=== PATIENT | female | born 1995 | race Caucasian/White ===

== ENCOUNTER 2023-10-04 08:56 | Outpatient (OUT) | payer OTHER, SELFPAY ==
--- NOTE | 2023-10-04 08:58 | US_ITS ---
[address] [address] Patient Name: CAROL FLORES MRN: [id number] date: 1995 Sex: F Assigned Patient Location: US Current Patient Location: Accession/Order Number: [id number] Exam Date: 10/04/2023 09:00 Report Date: 10/04/2023 15:40 At the request of: ADRIANNA MIRANDA Procedure: US OB >= 14 weeks Fetus EXAMINATION: US OB >= 14 weeks Fetus HISTORY: Positive test COMPARISON: No relevant comparison available. FINDINGS: Heart Rate: 148.0 bpm Number: 1.0 Amniotic Fluid Volume: Subjectively normal BIOMETRY: BPD: 2.9 cm cm; 15 weeks 2 days HC: 11.2 cmcm; 15 weeks 3 days AC: 9.4 cm cm; 15 weeks 4 days FL: 1.7 cm cm; 15 weeks 0 days EFW: Not recorded GESTATIONAL AGE: Age by EDC: 14 weeks 3 days JESSICA by EDC: 03/31/2024 Age by US: 15 weeks 2 days JESSICA by US: 03/25/2024 US/US OB >= 14 weeks Fetus IMPRESSION: 1. Single live intrauterine 15 weeks 2 days by today's ultrasound. Electronically authenticated by: AILIN SNELL Date: 10/04/2023 15:40
== END 2023-10-04 08:57 | disposition home or self-care (01) ==
LOC: US 08:57
PROVIDERS: Visit Provider Obstetrics & Gynecology
DX: Z34.92 Encounter for supervision of normal pregnancy, unspecified, second trimester (principal); Z3A.15 15 weeks gestation of pregnancy; N92.6 Irregular menstruation, unspecified
CPT/HCPCS: 76815

== ENCOUNTER 2023-10-23 14:02 | Outpatient (OUT) | payer OTHER, SELFPAY ==
[2023-10-23 14:30] LABS: Basophils Percent Auto 0.4 % (0.2-2.0); Eosinophils Percent Auto 0.4 % (0.9-7.0); Hematocrit 36.2 % (36.0-48.0); Hemoglobin 12.3 g/dL (12.0-16.0); Immature Granulocytes Abs Auto 0.04 10^3/uL (0.00-0.03); Immature Granulocytes Pct Auto 0.4 % (0.0-0.5); Lymphocytes Absolute Auto 1.9 10^3/uL (1.2-3.8); Lymphocytes Percent Auto 19.6 % (20.5-60.0); Mean Corpuscular Volume 94.3 fL (81.0-99.0); Mean Platelet Volume 10.9 fL (9.5-13.5); Monocytes Absolute Auto 0.6 10^3/uL (0.3-0.8); Monocytes Percent Auto 6.4 % (1.7-12.0); Neutrophils Absolute Auto 6.9 10^3/uL (1.4-6.5); Neutrophils Percent Auto 72.8 % (43.0-75.0); Platelet Count 196 10^3/uL (150-450); Red Blood Count 3.84 10^6/uL (4.20-5.40); Red Cell Distribution Width 12.3 % (11.0-15.0); White Blood Count 9.5 10^3/uL (4.0-11.0)
[2023-10-23 14:41] LABS: Estimated Average Glucose 88 mg/dL; Glycohemoglobin A1C 4.7 % (4.5-6.2)
[2023-10-23 15:18] LABS: Thyroid Stimulating Hormone 2.501 uIU/mL (0.358-3.740)
[2023-10-24 06:10] LABS: HBsAg Screen Negative (Negative); HCV Ab Non Reactive (Non Reactive); HIV Ab/p24 Ag Screen Non Reactive (Non Reactive); Rapid Plasma Reagin, Quant Non Reactive titer (NonRea<1:1)
[2023-10-24 08:10] LABS: Rubella Antibodies, IgG 1.12 index (Immune >0.99)
== END 2023-10-23 14:03 | disposition home or self-care (01) ==
LOC: LAB 14:04
PROVIDERS: Visit Provider Obstetrics & Gynecology
DX: N92.6 Irregular menstruation, unspecified (principal)
CPT/HCPCS: 36415; 83036; 84443; 85025; 86592; 86762; 86803; 86850; 86900; 86901; 87086; 87340; 87389

== ENCOUNTER 2023-11-01 19:01 | Outpatient (REF) | payer OTHER, SELFPAY ==
--- OUTSIDE RECORDS SUMMARY | 2023-11-01 19:04 | XMS_ITS | CCD ---
Author Name Unknown Address [address] [place] [address] Organization [facility] Encounters Encounter Date Encounter Type Care Provider Facility Start: 10-04-2023 End: 10-04-2023 ambulatory Not Available Payers Date Payer Category Payer Medicaid [id number] 1995 Unknown [id number] Summary Purpose Family History No Family History Records Found Advance Directives No Advanced Directives Records Found Additional Source Comments INFORMATION SOURCE (unrecogn ized section and content) DATE CREATED AUTHOR 10/06/2023 [facility] Special[facility] EPIC FOR RECORDS PERTAINING TO PATIENTS WHO ARE OR HAVE BEEN ENROLLED IN A CHEMICAL DEPENDENCY/SUBSTANCEABUSE PROGRAM, SOME INFORMATION MAY BE OMITTED. This clinical summary was aggregated from multiple sources. Caution should be exercised in using it in the provision of clinical care. This summary normalizes information from multiple sources, and as a consequence, information in this document may materially change the coding, format and clinical context of patient data. In addition, data may be omitted in some cases. CLINICAL DECISIONS SHOULD BE BASED ON THE PRIMARY CLINICAL RECORDS. [employer]. provides no warranty or guarantee of the accuracy or completeness of information in this document.
[2023-11-07 15:08] LABS: Age Gdln ACOG Testing Note (.); HPV Aptima Negative (Negative); IGP, Aptima HPV, rfx 16/18,45 Note (.)
== END 2023-11-01 19:02 | disposition home or self-care (01) ==
LOC: LAB 19:01
PROVIDERS: Visit Provider Obstetrics & Gynecology
DX: Z01.419 Encounter for gynecological examination (general) (routine) without abnormal findings (principal)
CPT/HCPCS: 87624; G0145

== ENCOUNTER 2023-11-06 19:04 | Outpatient (OUT) | payer OTHER, SELFPAY ==
--- OUTSIDE RECORDS SUMMARY | 2023-11-06 19:06 | XMS_ITS | CCD ---
Author Name Unknown Address [address] [place] [address] Organization [facility] Care Team Providers Care Metal Buffer Name Role Phone ADRIANNA MIRANDA Attending Unavailable Encounters Encounter Date Encounter Type Care Provider Facility Start: 11-01-2023 End: 11-01-2023 ambulatory ADRIANNA MIRANDA Not Available Start: 10-04-2023 End: 10-04-2023 ambulatory ADRIANNA RUBEN Not Available Payers Date Payer Category Payer Medicaid [id number] 1995 Unknown [id number] 2.16.84 [id number] 1995 Unknown [id number] .[id number] Summary Purpose Family History No Family History Records Found Advance Directives No Advanced Directives Records Found Additional Source Comments INFORMATION SOURCE (unrecogn ized section and content) DATE CREATED AUTHOR 11/02/2023 [facility] Specialists EPIC FOR RECORDS PERTAINING [...] BE BASED ON THE PRIMARY CLINICAL RECORDS. [employer] provides no warranty or guarantee of the accuracy or completeness of information in this document.
--- NOTE | 2023-11-06 19:08 | US_ITS ---
[address] [address] Patient Name: CAROL FLORES MRN: [id number] date: 1995 Sex: F Assigned Patient Location: US Current Patient Location: Accession/Order Number: [id number] Exam Date: 11/06/2023 19:20 Report Date: 11/07/2023 06:34 At the request of: ADRIANNA MIRANDA Procedure: US OB anatomy EXAMINATION: US OB anatomy, US OB cervical length HISTORY: SCREENING, ANTENTAL, FOR ANATOMIC SURVEY Z36.89 COMPARISON: Ultrasound OB 10/04/2023 TECHNIQUE: Transabdominal sonographic examination was performed for obstetrical and evaluation. FINDINGS: Number: 1 Heart Rate: 150.0 bpm H.B. /min Amniotic Fluid Volume: Subjectively normal Placental Location: POSTERIOR with lower margin 6.2 cm from os. Cervix Length: 4.3 cm, closed. ANATOMY: Normal Structures -cerebellum, choroid plexus, cisterna magna, lateral cerebral ventricles, orbits, midline falx, hard palate, four-chamber heart, RVOT, LVOT, stomach, kidneys, bladder, umbilical cord insertion into abdomen, three-vessel cord, cervical spine, thoracic spine, lumbar spine, sacral spine, right upper extremity, left upper extremity, right lower extremity, left lower extremity. SUBOPTIMALLY SEEN: None ABNORMALITIES: None BIOMETRY: BPD: 4.4 cm 19 weeks 3 days HC: 17.6 cm 20 weeks 1 days AC: 15.6 cm 20 weeks 5 days FL: 3.2 cm 19 weeks 6 days EFW:343.7 grams; 62% FL/AC: 20.4 FL/BPD: 71.4 HC/AC: 1.1 GESTATIONAL AGE: Age by EDC: 20 weeks 0 days JESSICA by EDC: 03/25/2024 Age by current US: 20 weeks 0 days JESSICA by current US: 03/25/2024 US/US OB anatomy IMPRESSION: 1. Single live intrauterine with growth detailed above. Electronically authenticated by: AILIN SNELL Date: 11/07/2023 06:34
--- NOTE | 2023-11-06 19:08 | US_ITS ---
[address] [address] Patient Name: CAROL FLORES MRN: [id number] date: 1995 Sex: F Assigned Patient Location: US Current Patient Location: Accession/Order Number: [id number] Exam Date: 11/06/2023 19:20 Report Date: 11/07/2023 06:34 At the request of: ADRIANNA MIRANDA Procedure: US OB cervical length EXAMINATION: US OB anatomy, US OB cervical length HISTORY: SCREENING, ANTENTAL, FOR ANATOMIC SURVEY Z36.89 COMPARISON: Ultrasound OB 10/04/2023 TECHNIQUE: Transabdominal sonographic examination was performed for obstetrical and evaluation. FINDINGS: Number: 1 Heart Rate: 150.0 bpm H.B. /min Amniotic Fluid Volume: Subjectively normal Placental Location: POSTERIOR with lower margin 6.2 cm from os. Cervix Length: 4.3 cm, closed. ANATOMY: Normal Structures -cerebellum, choroid plexus, cisterna magna, lateral cerebral ventricles, orbits, midline falx, hard palate, four-chamber heart, RVOT, LVOT, stomach, kidneys, bladder, umbilical cord insertion into abdomen, three-vessel cord, cervical spine, thoracic spine, lumbar spine, sacral spine, right upper extremity, left upper extremity, right lower extremity, left lower extremity. SUBOPTIMALLY SEEN: None ABNORMALITIES: None BIOMETRY: BPD: 4.4 cm 19 weeks 3 days HC: 17.6 cm 20 weeks 1 days AC: 15.6 cm 20 weeks 5 days FL: 3.2 cm 19 weeks 6 days EFW:343.7 grams; 62% FL/AC: 20.4 FL/BPD: 71.4 HC/AC: 1.1 GESTATIONAL AGE: Age by EDC: 20 weeks 0 days JESSICA by EDC: 03/25/2024 Age by current US: 20 weeks 0 days JESSICA by current US: 03/25/2024 US/US OB cervical length IMPRESSION: 1. Single live intrauterine with growth detailed above. Electronically authenticated by: AILIN SNELL Date: 11/07/2023 06:34
== END 2023-11-06 19:05 | disposition home or self-care (01) ==
LOC: US 19:04
PROVIDERS: Visit Provider Obstetrics & Gynecology
DX: Z36.89 Encounter for other specified antenatal screening (principal); Z3A.20 20 weeks gestation of pregnancy
CPT/HCPCS: 76805; 76817

== ENCOUNTER 2023-12-27 10:08 | Outpatient (OUT) | payer OTHER, SELFPAY ==
--- OUTSIDE RECORDS SUMMARY | 2023-12-27 10:28 | XMS_ITS | CCD ---
Author Organization [facility] Care Team Providers Care Pollution Control Chemist Name Role Phone ADRIANNA MIRANDA Attending Unavailable TAYLOR GOMES Attending Unavailable Encounters Encounter Date Encounter Type Care Provider Facility Start: 11-29-2023 End: 11-29-2023 ambulatory TAYLOR GOMES Not Available Start: 11-01-2023 End: 11-01-2023 ambulatory ADRIANNA MIRANDA Not Available Start: 10-04-2023 End: 10-04-2023 ambulatory ADRIANNA MIRANDA Not Available Payers Date Payer Category Payer Medicaid [id number] 1995 Unknown [id number] 2.16.84 [id number] 1995 Unknown [id number] 2.16.84 [id number] 1995 Unknown [id number] 2.16.840 .[id number] Summary Purpose Family History No Family History Records Found Advance Directives No Advanced Directives Records Found Additional Source Comments INFORMATION SOURCE (unrecogn ized section and content) DATE CREATED AUTHOR 12/07/2023 [facility] Specialists EPIC FOR RECORDS PERTAINING TO PATIENTS [...] BE BASED ON THE PRIMARY CLINICAL RECORDS. [facility]. provides no warranty or guarantee of the accuracy or completeness of information in this document.
[2023-12-27 11:36] LABS: Basophils Percent Auto 0.4 % (0.2-2.0); Eosinophils Percent Auto 0.5 % (0.9-7.0); Hematocrit 35.4 % (36.0-48.0); Hemoglobin 11.8 g/dL (12.0-16.0); Immature Granulocytes Abs Auto 0.04 10^3/uL (0.00-0.03); Immature Granulocytes Pct Auto 0.5 % (0.0-0.5); Lymphocytes Absolute Auto 1.4 10^3/uL (1.2-3.8); Lymphocytes Percent Auto 18.5 % (20.5-60.0); Mean Corpuscular HGB Conc 33.3 g/dL (29.9-35.2); Mean Corpuscular Hemoglobin 32.2 pg (26.7-34.0); Mean Corpuscular Volume 96.7 fL (81.0-99.0); Mean Platelet Volume 10.8 fL (9.5-13.5); Monocytes Absolute Auto 0.7 10^3/uL (0.3-0.8); Monocytes Percent Auto 8.9 % (1.7-12.0); Neutrophils Absolute Auto 5.5 10^3/uL (1.4-6.5); Neutrophils Percent Auto 71.2 % (43.0-75.0); Platelet Count 176 10^3/uL (150-450); Red Blood Count 3.66 10^6/uL (4.20-5.40); Red Cell Distribution Width 12.3 % (11.0-15.0); White Blood Count 7.7 10^3/uL (4.0-11.0)
[2023-12-27 14:15] LABS: Glucose 1 Hour 71 mg/dL (<130)
== END 2023-12-27 10:09 | disposition home or self-care (01) ==
LOC: LAB 10:09
PROVIDERS: Visit Provider Obstetrics & Gynecology
DX: Z13.1 Encounter for screening for diabetes mellitus (principal)
CPT/HCPCS: 36415; 82950; 85025

== ENCOUNTER 2024-01-02 07:33 | Outpatient (RCR) | payer OTHER, SELFPAY ==
[2024-01-02 08:56] VITALS: BP 130/80; PULSE 100; RESP 18; TEMP 36.4; O2SAT 97
[2024-01-02] MEDS: RHO(D) IMMUNE GLOBULIN 1,500 UNIT SYRINGE 1500 UNIT IM (08:59)
--- NOTE | 2024-01-02 09:09 | PC.NURSE ---
0850: Pt. to [facility] amb. for ordered Rhogam injection. Seated in recliner. Allergies verified. VSS. Pt. received Rhogam in past pregnancies x's 2 with no adverse reactions. 0859: Pt. medicated with Rhogam 1500 IU IM to right gluteal area. No bleeding to injection site. Pt. tolerated without c/o. 0908: Pt. without c/o. Given Rhogam ID card. D/c'd amb. to home.
== END 2024-01-02 09:31 | disposition home or self-care (01) ==
LOC: INF 07:33
PROVIDERS: Visit Provider Obstetrics & Gynecology
DX: O26.893 Other specified pregnancy related conditions, third trimester (principal); Z67.91 Unspecified blood type, Rh negative; Z3A.00 Weeks of gestation of pregnancy not specified
CPT/HCPCS: 36415; 86850; 86900; 86901; 96372; J2790

== ENCOUNTER 2024-01-10 11:30 | Outpatient (OUT) | payer OTHER, SELFPAY ==
--- NOTE | 2024-01-10 11:34 | US_ITS ---
[address] [address] Patient Name: CAROL FLORES MRN: [id number] date: 1995 Sex: F Assigned Patient Location: US Current Patient Location: US Accession/Order Number: [id number] Exam Date: 01/10/2024 11:35 Report Date: 01/10/2024 12:06 At the request of: ADRIANNA MIRANDA Procedure: US OB growth EXAMINATION: US OB growth HISTORY: 27 weeks gestation of Z3A.27 COMPARISON: Ultrasound OB anatomy 11/06/2023 FINDINGS: Heart Rate: 134.3 bpm Number: 1.0 Position: CEPHALIC Amniotic Fluid Volume: 15.3 cm Maximum Vertical Pocket: 4.6 cm BIOMETRY: BPD: 7.4 cm cm; 29 weeks 4 days; 47% HC: 28.4 cmcm; 31 weeks 1 days ; 73% AC: 25.0 cm cm; 29 weeks 2 days; 43% FL: 5.5 cm cm; 29 weeks 0 days; 29% EFW: 1387.1 grams; 41% FL/AC: 22.0 FL/BPD: 74.7 HC/AC: 1.1 GESTATIONAL AGE: Age by EDC: 29 weeks 2 days JESSICA by EDC: 03/25/2024 Age by US: 29 weeks 5 days JESSICA by US: 03/22/2024 US/US OB growth IMPRESSION: 1. Single live intrauterine with growth detailed above. 2. Small testicular hydrocele noted during examination. Electronically authenticated by: AILIN SNELL Date: 01/10/2024 12:06
--- OUTSIDE RECORDS SUMMARY | 2024-01-10 11:37 | XMS_ITS | CCD ---
Author Organization [facility] Care Team Providers Care Children'[address] Magistrate Name Role Phone ADRIANNA MIRANDA Attending Unavailable TAYLOR GOMES Attending Unavailable RUBEN, ADRIANNA Attending Unavailable Encounters Encounter Date Encounter Type Care Provider Facility Start: 12-27-2023 End: 12-27-2023 ambulatory ADRIANNA MIRANDA Not Available Start: 11-29-2023 End: 11-29-2023 ambulatory TAYLOR GOMES Not Available Start: 11-01-2023 End: 11-01-2023 ambulatory ADRIANNA RUBEN Not Available Start: 10-04-2023 End: 10-04-2023 ambulatory ADRIANNA RUBEN Not Available Payers Date Payer Category Payer Medicaid [id number] 1995 Unknown [id number] 2.16.84 0.1.857531.3.579.2.1259 1995 Unknown [id number] 2.16.84 0.1.723132.3.579.2.1259 1993 Unknown [id number] 2.16.84 0.1.505975.3.579.2.1259 1993 Unknown [id number] 2.16.840 .[id number] Summary Purpose Family History No Family History Records Found Advance Directives No Advanced Directives Records Found Additional Source Comments INFORMATION SOURCE (unrecogn ized section and content) DATE CREATED AUTHOR 12/28/2023 [facility] Specialists EPIC FOR RECORDS PERTAINING TO PATIENTS [...] BE BASED ON THE PRIMARY CLINICAL RECORDS. [facility]. provides no warranty or guarantee of the accuracy or completeness of information in this document.
== END 2024-01-10 11:31 | disposition home or self-care (01) ==
LOC: US 11:30
PROVIDERS: Visit Provider Obstetrics & Gynecology
DX: Z87.59 Personal history of other complications of pregnancy, childbirth and the puerperium (principal); Z3A.27 27 weeks gestation of pregnancy
CPT/HCPCS: 76816

== ENCOUNTER 2024-01-19 11:45 | Observation (INO) | payer OTHER, SELFPAY ==
--- OUTSIDE RECORDS SUMMARY | 2024-01-19 11:49 | XMS_ITS | CCD ---
Author Organization [facility] Care Team Providers Care Food Supervisor Name Role Phone ADRIANNA MIRANDA Attending Unavailable TAYLOR GOMES Attending Unavailable RUBEN, ADRIANNA Attending Unavailable ELISEO, TAYLOR Attending Unavailable Encounters Encounter Date Encounter Type Care Provider Facility Start: 01-10-2024 End: 01-10-2024 ambulatory TAYLOR ELISEO Not Available Start: 12-27-2023 End: 12-27-2023 ambulatory ADRIANNA RUBEN Not Available Start: 11-29-2023 End: 11-29-2023 ambulatory TAYLOR ELISEO Not Available Start: 11-01-2023 End: 11-01-2023 ambulatory ADRIANNA RUBEN Not Available Start: 10-04-2023 End: 10-04-2023 ambulatory ADRIANNA RUBEN Not Available Payers Date Payer Category Payer Medicaid [id number] 1995 Unknown [id number] 2.16.84 0.1.002723.3.579.2.9 1995 Unknown [id number] 2.16.84 0.1.741945.3.579.2.9 1993 Unknown [id number] 2.16.84 0.1.452309.3.579.2.1259 1993 Unknown [id number] 2.16.84 0.1.797295.3.579.2.1259 1993 Unknown [id number] 2.16.840 .[id number] Summary Purpose Family History No Family History Records Found Advance Directives No Advanced Directives Records Found Additional Source Comments INFORMATION SOURCE (unrecogn ized section and content) DATE CREATED AUTHOR 01/11/2024 [facility] dical Specialists EPIC FOR RECORDS PERTAINING TO PATIENTS [...] BE BASED ON THE PRIMARY CLINICAL RECORDS. [facility] [employer] [facility]. provides no warranty or guarantee of the accuracy or completeness of information in this document.
[2024-01-19 12:20] VITALS: BP 121/70; PULSE 97
[2024-01-19 12:56] LABS: Bilirubin Urine NEGATIVE (NEGATIVE); Blood Urine NEGATIVE (NEGATIVE); Clarity Urine CLEAR (CLEAR); Color Urine LT. YELLOW (YELLOW); Glucose Urine UA NEGATIVE (NEGATIVE); Ketones Urine NEGATIVE (NEGATIVE); Leukocyte Esterase Urine SMALL (NEGATIVE); Nitrite Urine NEGATIVE (NEGATIVE); Protein Urine NEGATIVE (NEG/TRACE); Urobilinogen Urine 0.2 EU/dL (0.2-1.0)
[2024-01-19 12:58] LABS: Urine Microscopic Indicated YES
[2024-01-19 13:06] LABS: Bacteria Urine NONE SEEN #/HPF (NONE SEEN); Cast Seen? NONE SEEN #/LPF (NONE SEEN); Crystals Seen? None Seen #/HPF (None Seen); Mucus Urine NONE SEEN (NONE SEEN); RBC Urine NONE SEEN #/HPF (0-2); Squamous Epithelial Cell Urine NONE SEEN #/LPF (NONE/RARE); WBC Urine 0-2 #/HPF (NONE SEEN)
--- OUTSIDE RECORDS SUMMARY | 2024-01-22 07:34 | XMS_ITS | CCD ---
Author Organization [facility] Care Team Providers Care Plaster Foreman Name Role Phone ADRIANNA MIRANDA Attending Unavailable [...] Available Payers Date Payer Category Payer Medicaid [id number] 1995 Unknown [id number] 2.16.84 0.1.362059.3.579.2.9 1993 Unknown [id number] 2.16.84 0.1.380844.3.579.2.9 1993 Unknown [id number] 2.16.84 0.1.954737.3.579.2.1259 1993 Unknown [id number] 2.16.84 0.1.152619.3.579.2.1259 1993 Unknown [id number] 2.16.840 .[id number] Summary Purpose Family History No Family History Records Found Advance Directives No Advanced Directives Records Found Additional Source Comments INFORMATION SOURCE (unrecogn ized section and content) DATE CREATED AUTHOR 01/11/2024 [facility] dical Specialists EPIC FOR RECORDS PERTAINING TO [...] BE BASED ON THE PRIMARY CLINICAL RECORDS. [facility] [employer]. provides no warranty or guarantee of the accuracy or completeness of information in this document.
== END 2024-01-19 13:28 | disposition home or self-care (01) ==
PROVIDERS: Admitting Provider Obstetrics & Gynecology; Visit Provider Obstetrics & Gynecology
DX: O26.893 Other specified pregnancy related conditions, third trimester (principal); M54.50 Low back pain, unspecified; N89.8 Other specified noninflammatory disorders of vagina; O34.219 Maternal care for unspecified type scar from previous cesarean delivery; Z3A.30 30 weeks gestation of pregnancy
CPT/HCPCS: 59025; 81001; G0378; G0379

== ENCOUNTER 2024-02-07 09:51 | Outpatient (OUT) | payer OTHER, SELFPAY ==
--- NOTE | 2024-02-07 09:56 | US_ITS ---
[address] [address] Patient Name: CAROL FLORES MRN: [id number] date: 1995 Sex: F Assigned Patient Location: Current Patient Location: Accession/Order Number: [id number] Exam Date: 02/07/2024 10:00 Report Date: 02/07/2024 10:38 At the request of: ADRIANNA MIRANDA Procedure: US OB growth EXAMINATION: US OB growth HISTORY: 27 weeks gestation of Z3A.27 COMPARISON: 01/10/2024 FINDINGS: Heart Rate: 138.5 bpm Amniotic Fluid Volume: 14.2 cm Number: 1.0 Position: Cephalic presentation, longitudinal lie Maximum Vertical Pocket: 4.6 cm cm 3.7 cm cm 2.5 cm cm 3.3 cm cm BIOMETRY: BPD: 8.1 cm cm; 32 weeks 3 days; 21% HC: 30.6 cmcm; 34 weeks 1 days , 33% AC: 31.2 cm cm; 35 weeks 1 days, 93% FL: 6.2 cm cm; 32 weeks 1 days; 13.3 % % EFW: 2310.6 grams, 5 lbs. 2 oz., 62% FL/AC: 19.9 FL/BPD: 76.8 HC/AC: 1.0 GESTATIONAL AGE: Age by EDC: 33 weeks 2 days JESSICA by EDC: 03/25/2024 Age by US: 33 weeks 3 days JESSICA by US: 03/24/2024 Small bilateral scrotal hydroceles US/US OB growth IMPRESSION: Small stable bilateral scrotal hydroceles, nonspecific Otherwise normal interval growth Electronically authenticated by: DONNA DIAMOND Date: 02/07/2024 10:38
--- OUTSIDE RECORDS SUMMARY | 2024-02-07 10:06 | XMS_ITS | CCD ---
Author Organization [facility] Care Team Providers Care Mold Swabber Name Role Phone RUBEN, ADRIANNA Attending Unavailable ELISEO, TAYLOR Attending Unavailable RUBEN, ADRIANNA Attending Unavailable ELISEO, TAYLOR Attending Unavailable RUBEN, ADRIANNA Attending Unavailable Encounters Encounter Date Encounter Type Care Provider Facility Start: 01-24-2024 End: 01-24-2024 ambulatory ADRIANNA RUBEN Not Available Start: 01-10-2024 End: 01-10-2024 ambulatory TAYLOR ELISEO Not Available Start: 12-27-2023 End: 12-27-2023 ambulatory ADRIANNA RUBEN Not Available Start: 11-29-2023 End: 11-29-2023 ambulatory TAYLOR ELISEO Not Available Start: 11-01-2023 End: 11-01-2023 ambulatory ADRIANNA RUBEN Not Available Start: 10-04-2023 End: 10-04-2023 ambulatory ADRIANNA RUBEN Not Available Payers Date Payer Category Payer Medicaid [id number] 1995 Unknown [id number] 0.1.829405.3.579.2.1258 1993 Unknown [id number] .16.84 0.1.501480.3.579.2.1258 1993 Unknown [id number] .16.84 0.1.155868.3.579.2.1258 1993 Unknown [id number] .16.84 0.1.857041.3.579.2.9 1993 Unknown [id number] .16.84 0.1.963674.3.579.2.9 1993 Unknown [id number] .[id number] Summary Purpose Family History No Family History Records Found Advance Directives No Advanced Directives Records Found Additional Source Comments INFORMATION SOURCE (unrecogn ized section and content) DATE CREATED AUTHOR 01/25/2024 [facility] jessal Specialists [facility] FOR RECORDS PERTAINING TO PATIENTS WHO ARE [...] BE BASED ON THE PRIMARY CLINICAL RECORDS. [facility] [employer] provides no warranty or guarantee of the accuracy or completeness of information in this document.
== END 2024-02-07 09:52 | disposition home or self-care (01) ==
LOC: US 09:51
PROVIDERS: Visit Provider Obstetrics & Gynecology
DX: Z87.59 Personal history of other complications of pregnancy, childbirth and the puerperium (principal); Z3A.33 33 weeks gestation of pregnancy
CPT/HCPCS: 76816

== ENCOUNTER 2024-02-13 07:25 | Outpatient (OUT) | payer OTHER, SELFPAY ==
--- OUTSIDE RECORDS SUMMARY | 2024-02-13 07:29 | XMS_ITS | CCD ---
Author Organization [facility] Care Team Providers Care Air Sealing Technician Name Role Phone RUBEN, ADRIANNA Attending Unavailable ELISEO, TAYLOR Attending Unavailable RUBEN, ADRIANNA Attending Unavailable ELISEO, TAYLOR Attending Unavailable RUBEN, ADRIANNA Attending Unavailable RUBEN, ADRIANNA Attending Unavailable Encounters Encounter Date Encounter Type Care Provider Facility Start: 02-07-2024 End: 02-07-2024 ambulatory ADRIANNA RUBEN Not Available Start: 01-24-2024 End: 01-24-2024 ambulatory ADRIANNA RUBEN Not Available Start: 01-10-2024 End: 01-10-2024 ambulatory TAYLOR ELISEO Not Available Start: 12-27-2023 End: 12-27-2023 ambulatory ADRIANNA RUBEN Not Available Start: 11-29-2023 End: 11-29-2023 ambulatory TAYLOR ELISEO Not Available Start: 11-01-2023 End: 11-01-2023 ambulatory ADRIANNA RUBEN Not Available Start: 10-04-2023 End: 10-04-2023 ambulatory ADRIANNA RUBEN Not Available Payers Date Payer Category Payer Medicaid [id number] 1995 Unknown [id number] 2.16.84 0.1.125078.3.579.2.1258 1995 Unknown [id number] 2.16.84 0.1.689189.3.579.2.1258 1993 Unknown [id number] 2.16.84 0.1.991027.3.579.2.1258 1993 Unknown [id number] 2.16.84 0.1.889459.3.579.2.9 1993 Unknown [id number] 2.16.84 0.1.152312.3.579.2.1258 1993 Unknown [id number] 2.16.84 0.1.358097.3.579.2.1259 1993 Unknown [id number] 2.16.840 .1.691204.3.579.2.1259 Summary Purpose Family History No Family History Records Found Advance Directives No Advanced Directives Records Found Additional Source Comments INFORMATION SOURCE (unrecogn ized section and content) DATE CREATED AUTHOR 02/08/2024 [facility] Specialists [facility] FOR RECORDS PERTAINING TO PATIENTS WHO [...] BE BASED ON THE PRIMARY CLINICAL RECORDS. [employer] provides no warranty or guarantee of the accuracy or completeness of information in this document.
--- NOTE | 2024-02-13 09:54 | US_ITS ---
[address] [address] Patient Name: CAROL FLORES MRN: [id number] date: 1995 Sex: F Assigned Patient Location: Current Patient [facility]: [facility] Accession/Order Number: [id number] Exam Date: 02/13/2024 10:00 Report Date: 02/13/2024 10:45 At the request of: ADRIANNA MIRANDA Procedure: US OB BPP w non-stress EXAMINATION: US OB BPP w non-stress HISTORY: History of placenta abruption Z87.59 COMPARISON: No relevant comparison available. TECHNIQUE: Ultrasound biophysical profile was performed in the radiology department. FINDINGS: BREATHING MOVEMENTS: 2.0 GROSS BODY MOVEMENTS: 2.0 TONE: 2.0 QUALITATIVE AMNIOTIC FLUID VOLUME: 2.0 PRESENTATION: CEPHALIC HEART RATE: 137.1 bpm H.B./min AMNIOTIC FLUID VOLUME: 14.3 cm cm GESTATIONAL AGE: 34 weeks 1 days CONCLUSION: Total biophysical profile score: 8.0 Electronically authenticated by: DONNA DIAMOND Date: 02/13/2024 10:45
[2024-02-13 10:21] VITALS: BP 125/81; PULSE 113
== END 2024-02-13 10:57 | disposition home or self-care (01) ==
LOC: US 07:25 → FBC 09:57
PROVIDERS: Visit Provider Obstetrics & Gynecology
DX: Z34.93 Encounter for supervision of normal pregnancy, unspecified, third trimester (principal); Z87.59 Personal history of other complications of pregnancy, childbirth and the puerperium; Z3A.34 34 weeks gestation of pregnancy
CPT/HCPCS: 76818

== ENCOUNTER 2024-02-16 05:44 | Outpatient (OUT) | payer OTHER, SELFPAY ==
--- OUTSIDE RECORDS SUMMARY | 2024-02-16 05:47 | XMS_ITS ---
Author Name Auto Generated Organization [facility] Care Team Providers Care Stretcher Helper Name Role Phone ADRIANNA MIRANDA Attending Unavailable ELISEO, TAYLOR Attending Unavailable RUBEN, ADRIANNA Attending Unavailable ELISEO, TAYLOR Attending Unavailable RUBEN, ADRIANNA Attending Unavailable RUBEN, ADRIANNA Attending Unavailable PROBLEMS No Problem Records Found PROCEDURES No Procedure Records Found RESULTS No Result Records Found ALLERGIES No Allergies Records Found ENCOUNTERS ADMIT/DISCHARGE ACCOUNT NUMBER ADMITTING ENCOUNTER CLASS LOCATION SOURCE 02/07/2024/ 4 [id number] Ambulatory Building:[facility] 01/24/2024/ 4 [id number] Ambulatory Building:[facility] 01/10/2024/ 4 [id number] Ambulatory Building:[facility] 12/27/2023/ 4 [id number] Ambulatory Building:[facility] 11/29/2023/ 4 [id number] Ambulatory Building:[facility] 11/01/2023/ 4 [id number] Ambulatory Building:[facility] 10/04/2023/ 3 [id number] Ambulatory Building:[facility] EPIC PAYERS ENCOUNTER GUARANTOR PAYER SUBSCRIBER SOURCE 02/07/2024 CAROL FLEMING: [place] [address]Jdf: (HP) (WP) Primary Insurance:[place] MEDICAID[place] Number: [id number] Date:2023-08-08 CAROL FLEMING: [id number] [place] [address] [facility] EPIC 01/24/2024 CAROL FLEMING: [place] [address]Nvz: (HP) (WP) Primary Insurance:[place] MEDICAIDPolicy Number: [id number] Date:2023-08-08 CAROL FLEMING: [id number] [place] [address] [facility] EPIC 01/10/2024 CAROL FLEMING: [place] [address]Ffk: (HP) (WP) Primary Insurance:[place] MEDICAIDPolicy Number: [id number] Date:2023-08-08 CAROL FLEMING: [id number] [place] [address] [facility] EPIC 12/27/2023 CAROL FLEMING: [place] [address]Vjj: (HP) (WP) Primary Insurance:[place] MEDICAIDPolicy Number: [id number] Date:2023-08-08 CAROL FLEMING: [id number] [place] [address] [facility] EPIC 11/29/2023 CAROL FLEMING: [place] [address]Lje: (HP) (WP) Primary Insurance:[place] MEDICAIDPolicy Number: [id number] Date:2023-08-08 CAROL FLEMING: [id number] [place] [address] [facility] 11/01/2023 CAROL FLEMING: [place] [address]Ywg: (HP) (WP) Primary Insurance:[place] MEDICAIDPolicy Number: [id number] Date:2023-08-08 CAROL FLEMING: [id number] [place] [address] [facility] EPIC 10/04/2023 CAROL FLEMING: [place] [address]Gnt: (HP) (WP) Primary Insurance:[place] MEDICAIDPolicy Number: [id number] Date:2023-08-08 CAROL FLEMING: [id number] [place] [address] [facility] EPIC
[2024-02-16 08:15] VITALS: BP 122/68; PULSE 76
== END 2024-02-16 08:32 | disposition home or self-care (01) ==
LOC: FBCO 05:45 → FBC 08:04
PROVIDERS: Visit Provider Obstetrics & Gynecology
DX: O26.893 Other specified pregnancy related conditions, third trimester (principal)
CPT/HCPCS: 59025

== ENCOUNTER 2024-02-20 07:06 | Outpatient (OUT) | payer OTHER, SELFPAY ==
--- OUTSIDE RECORDS SUMMARY | 2024-02-20 07:08 | XMS_ITS | CCD ---
Author Organization [facility] Care Team Providers Care Automobile Radio Repairer Name Role Phone RUBEN, ADRIANNA Attending Unavailable [...] Available Payers Date Payer Category Payer Medicaid [id number] 1995 Unknown [id number] 2.16.84 0.1.914428.3.579.2.1258 1993 Unknown [id number] 2.16.84 0.1.668114.3.579.2.1258 1993 Unknown [id number] 2.16.84 0.1.932846.3.579.2.1258 1993 Unknown [id number] 2.16.84 0.1.893452.3.579.2.9 1993 Unknown [id number] 2.16.84 0.1.332141.3.579.2.1258 1993 Unknown [id number] 2.16.84 0.1.108417.3.579.2.1259 1993 Unknown [id number] 2.16.840 .1.621831.3.579.2.1259 Summary Purpose Family History No Family History Records Found Advance Directives No Advanced Directives Records Found Additional Source Comments INFORMATION SOURCE (unrecogn ized section and content) DATE CREATED AUTHOR 02/08/2024 [facility] FOR RECORDS PERTAINING TO PATIENTS WHO [...] BE BASED ON THE PRIMARY CLINICAL RECORDS. [facility] [employer] provides no warranty or guarantee of the accuracy or completeness of information in this document.
--- NOTE | 2024-02-20 09:36 | US_ITS ---
[address] [address] Patient Name: CAROL FLORES MRN: [id number] date: 1995 Sex: F Assigned Patient Location: US Current Patient Location: [place] Accession/Order Number: [id number] Exam Date: 02/20/2024 10:10 Report Date: 02/20/2024 11:28 At the request of: ADRIANNA MIRANDA Procedure: US OB BPP w non-stress EXAMINATION: US OB BPP w non-stress HISTORY: History of placental abruption Z87.59 COMPARISON: No relevant comparison available. TECHNIQUE: Ultrasound biophysical profile was performed in the radiology department. FINDINGS: BREATHING MOVEMENTS: 2.0 GROSS BODY MOVEMENTS: 2.0 TONE: 2.0 QUALITATIVE AMNIOTIC FLUID VOLUME: 2.0 PRESENTATION: CEPHALIC HEART RATE: 142.1 bpm H.B./min AMNIOTIC FLUID VOLUME: 13.6 cm cm GESTATIONAL AGE: 35 weeks 1 days CONCLUSION: Total biophysical profile score: 8.0 Electronically authenticated by: DONNA DIAMOND Date: 02/20/2024 11:28
[2024-02-20 10:02] VITALS: BP 118/67; PULSE 104
== END 2024-02-20 11:00 | disposition home or self-care (01) ==
LOC: US 07:06 → FBC 09:51
PROVIDERS: Visit Provider Obstetrics & Gynecology
DX: Z34.93 Encounter for supervision of normal pregnancy, unspecified, third trimester (principal); Z87.59 Personal history of other complications of pregnancy, childbirth and the puerperium; Z3A.35 35 weeks gestation of pregnancy
CPT/HCPCS: 76818

== ENCOUNTER 2024-02-23 08:08 | Outpatient (OUT) | payer OTHER, SELFPAY ==
--- OUTSIDE RECORDS SUMMARY | 2024-02-23 08:11 | XMS_ITS | CCD ---
Author Organization [facility] Care Team Providers Care Movie Theater Usher Name Role Phone RUBEN, ADRIANNA Attending Unavailable [...] Available Payers Date Payer Category Payer Medicaid [id number] 1995 Unknown [id number] 2.16.84 0.1.143052.3.579.2.1258 1993 Unknown [id number] 2.16.84 0.1.999790.3.579.2.1258 1993 Unknown [id number] 2.16.84 0.1.972968.3.579.2.1258 1993 Unknown [id number] 2.16.84 0.1.639115.3.579.2.9 1993 Unknown [id number] 2.16.84 0.1.821706.3.579.2.1258 1993 Unknown [id number] 2.16.84 0.1.421094.3.579.2.1259 1993 Unknown [id number] 2.16.840 .1.880258.3.579.2.1259 Summary Purpose Family History No Family History Records Found Advance Directives No Advanced Directives Records Found Additional Source Comments INFORMATION SOURCE (unrecogn ized section and content) DATE CREATED AUTHOR 02/08/2024 [facility] Special[facility] FOR RECORDS PERTAINING [...] BE BASED ON THE PRIMARY CLINICAL RECORDS. [facility] [employer] provides no warranty or guarantee of the accuracy or completeness of information in this document.
[2024-02-23 08:13] VITALS: BP 128/68; PULSE 90
== END 2024-02-23 08:40 | disposition home or self-care (01) ==
LOC: FBCO 08:08 → FBC 08:10
PROVIDERS: Visit Provider Obstetrics & Gynecology
DX: O43.899 Other placental disorders, unspecified trimester (principal)
CPT/HCPCS: 59025

== ENCOUNTER 2024-02-27 07:05 | Outpatient (OUT) | payer OTHER, SELFPAY ==
--- NOTE | 2024-02-27 | US_ITS ---
[address] [address] Patient Name: CAROL FLORES MRN: [id number] date: 1995 Sex: F Assigned Patient Location: [facility] Current Patient Location: [facility] Accession/Order Number: [id number] Exam Date: 02/27/2024 09:42 Report Date: 02/27/2024 10:09 At the request of: ADRIANNA MIRANDA Procedure: US OB BPP w non-stress EXAMINATION: US OB BPP w non-stress HISTORY: HISTORY OF PLACENTA ABRUPTION Z87.59 COMPARISON: TECHNIQUE: Ultrasound biophysical profile was performed in the radiology department. non-reactive stress testing was performed by nursing staff in the birthing center. FINDINGS: BREATHING MOVEMENTS: 2.0 GROSS BODY MOVEMENTS: 2.0 TONE: 2.0 QUALITATIVE AMNIOTIC FLUID VOLUME: 2.0 PRESENTATION: CEPHALIC HEART RATE: 142.9 bpm H.B./min AMNIOTIC FLUID VOLUME: 14.6 cm cm GESTATIONAL AGE: 36 weeks 1 days CONCLUSION: Total biophysical profile score: 8.0 Electronically authenticated by: DONNA DIAMOND Date: 02/27/2024 10:09
--- OUTSIDE RECORDS SUMMARY | 2024-02-27 08:01 | XMS_ITS | CCD ---
Author Organization [facility] Care Team Providers Care Contribution Solicitor Name Role Phone RUBEN, ADRIANNA Attending Unavailable ELISEO, TAYLOR Attending Unavailable RUBEN, ADRIANNA Attending Unavailable ELISEO, TAYLOR Attending Unavailable RUBEN, ADRIANNA Attending Unavailable RUBEN, ADRIANNA Attending Unavailable RUBEN, ADRIANNA Attending Unavailable Encounters Encounter Date Encounter Type Care Provider Facility Start: 02-21-2024 End: 02-21-2024 ambulatory ADRIANNA RUBEN Not Available Start: 02-07-2024 End: 02-07-2024 ambulatory ADRIANNA RUBEN [...] Available Payers Date Payer Category Payer Medicaid [id number] 1995 Unknown [id number] 2.16.84 0.1.092204.3.579.2.1258 1993 Unknown [id number] 2.16.84 0.1.694821.3.579.2.9 1993 Unknown [id number] 2.16.84 0.1.434363.3.579.2.9 1993 Unknown [id number] 2.16.84 0.1.478218.3.579.2.1259 1993 Unknown [id number] 2.16.84 0.1.340743.3.579.2.1259 1993 Unknown [id number] 2.16.84 0.1.722022.3.579.2.1259 1993 Unknown [id number] 2.16.84 0.1.282586.3.579.2.1259 1993 Unknown [id number] 2.16.840 .1.360807.3.579.2.1259 Summary Purpose Family History No Family History Records Found Advance Directives No Advanced Directives Records Found Additional Source Comments INFORMATION SOURCE (unrecogn ized section and content) DATE CREATED AUTHOR 02/23/2024 [facility] FOR RECORDS PERTAINING TO PATIENTS WHO [...] BE BASED ON THE PRIMARY CLINICAL RECORDS. [employer] provides no warranty or guarantee of the accuracy or completeness of information in this document.
[2024-02-27 10:01] VITALS: BP 109/69; PULSE 92
== END 2024-02-27 10:25 | disposition home or self-care (01) ==
LOC: US 07:48 → FBC 09:39
PROVIDERS: Visit Provider Obstetrics & Gynecology
DX: Z87.59 Personal history of other complications of pregnancy, childbirth and the puerperium (principal); Z3A.36 36 weeks gestation of pregnancy
CPT/HCPCS: 76818; 87081

== ENCOUNTER 2024-02-27 21:24 | Outpatient (REF) | payer OTHER, SELFPAY ==
--- OUTSIDE RECORDS SUMMARY | 2024-02-27 21:29 | XMS_ITS | CCD ---
Author Organization [facility] Care Team Providers Care Genetic Counsellor Name Role Phone RUBEN, ADRIANNA Attending Unavailable [...] Available Payers Date Payer Category Payer Medicaid [id number] 1995 Unknown [id number] 2.16.84 0.1.973258.3.579.2.1258 1993 Unknown [id number] 2.16.84 0.1.340676.3.579.2.9 1993 Unknown [id number] 2.16.84 0.1.757679.3.579.2.9 1993 Unknown [id number] 2.16.84 0.1.360062.3.579.2.1259 1993 Unknown [id number] 2.16.84 0.1.996477.3.579.2.1259 1993 Unknown [id number] 2.16.84 0.1.657361.3.579.2.1259 1993 Unknown [id number] 2.16.84 0.1.640436.3.579.2.1259 1993 Unknown [id number] 2.16.840 .1.205494.3.579.2.1259 Summary Purpose Family History No Family History Records Found Advance Directives No Advanced Directives Records Found Additional Source Comments INFORMATION SOURCE (unrecogn ized section and content) DATE CREATED AUTHOR 02/23/2024 [facility] Special[facility] FOR RECORDS PERTAINING TO PATIENTS [...] BE BASED ON THE PRIMARY CLINICAL RECORDS. [employer] provides no warranty or guarantee of the accuracy or completeness of information in this document.
== END 2024-02-27 21:25 | disposition home or self-care (01) ==
LOC: LAB 21:24
PROVIDERS: Visit Provider Physician Assistant
DX: Z34.93 Encounter for supervision of normal pregnancy, unspecified, third trimester (principal)
CPT/HCPCS: 87081

== ENCOUNTER 2024-03-01 08:10 | Outpatient (OUT) | payer OTHER, SELFPAY ==
--- OUTSIDE RECORDS SUMMARY | 2024-03-01 08:12 | XMS_ITS | CCD ---
Author Organization [facility] Team Providers Care Blood Tester Name Role Phone RUBEN, ADRIANNA Attending Unavailable ELISEO, TAYLOR Attending Unavailable RUBEN, ADRIANNA Attending Unavailable ELISEO, TAYLOR Attending Unavailable RUBEN, ADRIANNA Attending Unavailable RUBEN, ADRIANNA Attending Unavailable RUBEN, ADRIANNA Attending Unavailable ELISEO, TAYLOR Attending Unavailable Encounters Encounter Date Encounter Type Care Provider Facility Start: 02-27-2024 End: 02-27-2024 ambulatory TAYLOR ELISEO Not Available Start: 02-21-2024 End: 02-21-2024 ambulatory ADRIANNA RUBEN [...] Available Payers Date Payer Category Payer Medicaid [id number] 1995 Unknown [id number] 2.16.84 0.1.469820.3.579.2.1259 1993 Unknown [id number] 2.16.84 0.1.626399.3.579.2.1259 1993 Unknown [id number] 2.16.84 0.1.419471.3.579.2.1259 1993 Unknown [id number] 2.16.84 0.1.540459.3.579.2.1259 1993 Unknown [id number] 2.16.84 0.1.126031.3.579.2.1258 1993 Unknown [id number] 2.16.84 0.1.503455.3.579.2.1258 1993 Unknown [id number] 2.16.84 0.1.625939.3.579.2.1258 1993 Unknown [id number] 2.16.84 0.1.700686.3.579.2.1258 1993 Unknown [id number] 2.16.840 .1.642473.3.579.2.1259 Summary Purpose Family History No Family History Records Found Advance Directives No Advanced Directives Records Found Additional Source Comments INFORMATION SOURCE (unrecogn ized section and content) DATE CREATED AUTHOR 02/29/2024 [facility] Specialists EPIC FOR RECORDS PERTAINING TO [...] BE BASED ON THE PRIMARY CLINICAL RECORDS. [facility] [employer] provides no warranty or guarantee of the accuracy or completeness of information in this document.
[2024-03-01 08:15] VITALS: BP 121/77; PULSE 121
== END 2024-03-01 09:10 | disposition home or self-care (01) ==
LOC: FBCO 08:10 → FBC 08:11
PROVIDERS: Visit Provider Obstetrics & Gynecology
DX: O43.899 Other placental disorders, unspecified trimester (principal)
CPT/HCPCS: 59025

== ENCOUNTER 2024-03-05 07:15 | Outpatient (OUT) | payer OTHER, SELFPAY ==
--- NOTE | 2024-03-05 | US_ITS ---
[address] [address] Patient Name: CAROL FLORES MRN: [id number] date: 1995 Sex: F Assigned Patient Location: [facility] Current Patient Location: Accession/Order Number: [id number] Exam Date: 03/05/2024 10:00 Report Date: 03/05/2024 11:30 At the request of: ADRIANNA MIRANDA Procedure: US OB BPP w non-stress EXAMINATION: US OB BPP w non-stress HISTORY: HISTORY OF PLACENTA ABRUPTION Z 87.59 COMPARISON: No relevant comparison available. TECHNIQUE: Ultrasound biophysical profile was performed in the radiology department. FINDINGS: BREATHING MOVEMENTS: 2.0 GROSS BODY MOVEMENTS: 2.0 TONE: 2.0 QUALITATIVE AMNIOTIC FLUID VOLUME: 2.0 PRESENTATION: CEPHALLIC HEART RATE: 150.0 bpm H.B./min AMNIOTIC FLUID VOLUME: 13.0 cm cm GESTATIONAL AGE: 37 weeks 1 days CONCLUSION: Total biophysical profile score: 8.0 Electronically authenticated by: DONNA DIAMOND Date: 03/05/2024 11:30
--- NOTE | 2024-03-05 | US_ITS ---
[address] [address] Patient Name: CAROL FLORES MRN: [id number] date: 1995 Sex: F Assigned Patient Location: [facility] Current Patient Location: Accession/Order Number: [id number] Exam Date: 03/05/2024 10:00 Report Date: 03/05/2024 11:31 At the request of: ADRIANNA MIRANDA Procedure: US OB growth EXAMINATION: US OB growth HISTORY: HISTORY OF PLACENTA ABRUPTION Z 87.59 COMPARISON: No relevant comparison available. FINDINGS: Heart Rate: 150.0 bpm Amniotic Fluid Volume: 13.0 cm Number: 1.0 Position: Cephalic presentation, longitudinal lie Maximum Vertical Pocket: 3.7 cm cm 2.4 cm cm 3.5 cm cm 3.4 cm cm BIOMETRY: BPD: 9.0 cm cm; 36 weeks 3 days; 44% HC: 32.7 cmcm; 37 weeks 1 days , 25% AC: 34.7 cm cm; 38 weeks 4 days, 93% FL: 7.2 cm cm; 37 weeks 1 days; 48.3 % % EFW: 3316.1 grams, 7 lbs. 5 oz., 75% FL/AC: 20.9 FL/BPD: 80.7 HC/AC: 0.9 GESTATIONAL AGE: Age by EDC: 37 weeks 1 days JESSICA by EDC: 03/25/2024 Age by US: 37 weeks 2 days JESSICA by US: 03/24/2024 US/US OB growth IMPRESSION: Normal interval growth Electronically authenticated by: DONNA DIAMOND Date: 03/05/2024 11:31
--- OUTSIDE RECORDS SUMMARY | 2024-03-05 07:44 | XMS_ITS | CCD ---
Author Organization [facility] Care Team Providers Care Loss Prevention Analyst Name Role Phone RUBEN, ADRIANNA Attending Unavailable [...] Available Payers Date Payer Category Payer Medicaid [id number] 1995 Unknown [id number] 2.16.84 0.1.038210.3.579.2.1259 1993 Unknown [id number] 2.16.84 0.1.497845.3.579.2.1259 1993 Unknown [id number] 2.16.84 0.1.505165.3.579.2.1259 1993 Unknown [id number] 2.16.84 0.1.988417.3.579.2.1259 1993 Unknown [id number] 2.16.84 0.1.098648.3.579.2.1258 1993 Unknown [id number] 2.16.84 0.1.572796.3.579.2.1258 1993 Unknown [id number] 2.16.84 0.1.822052.3.579.2.1258 1993 Unknown [id number] 2.16.84 0.1.102898.3.579.2.1258 1993 Unknown [id number] 2.16.840 .1.014237.3.579.2.1259 Summary Purpose Family History No Family History Records Found Advance Directives No Advanced Directives Records Found Additional Source Comments INFORMATION SOURCE (unrecogn ized section and content) DATE CREATED AUTHOR 02/29/2024 [facility] Specialists EPIC FOR RECORDS PERTAINING TO PATIENTS [...] BE BASED ON THE PRIMARY CLINICAL RECORDS. [facility] [employer] provides no warranty or guarantee of the accuracy or completeness of information in this document.
[2024-03-05 10:20] VITALS: BP 142/73; PULSE 93
== END 2024-03-05 10:50 | disposition home or self-care (01) ==
LOC: US 07:40 → FBC 09:58
PROVIDERS: Visit Provider Obstetrics & Gynecology
DX: Z34.93 Encounter for supervision of normal pregnancy, unspecified, third trimester (principal); Z3A.37 37 weeks gestation of pregnancy
CPT/HCPCS: 76816; 76818

== ENCOUNTER 2024-03-08 07:00 | Outpatient (OUT) | payer OTHER, SELFPAY ==
--- OUTSIDE RECORDS SUMMARY | 2024-03-08 08:00 | XMS_ITS | CCD ---
Author Organization [facility] Care Team Providers Care Photogrammetric Compilation Specialist Name Role Phone RUBEN, ADRIANNA Attending Unavailable [...] Available Payers Date Payer Category Payer Medicaid [id number] 1995 Unknown [id number] 2.16.84 0.1.528635.3.579.2.1259 1993 Unknown [id number] 2.16.84 0.1.417237.3.579.2.1259 1993 Unknown [id number] 2.16.84 0.1.656874.3.579.2.1259 1993 Unknown [id number] 2.16.84 0.1.470824.3.579.2.1259 1993 Unknown [id number] 2.16.84 0.1.048615.3.579.2.1258 1993 Unknown [id number] 2.16.84 0.1.078991.3.579.2.1258 1993 Unknown [id number] 2.16.84 0.1.669657.3.579.2.1258 1993 Unknown [id number] 2.16.84 0.1.863936.3.579.2.1258 1993 Unknown [id number] 2.16.840 .1.167250.3.579.2.1259 Summary Purpose Family History No Family History Records Found Advance Directives No Advanced Directives Records Found Additional Source Comments INFORMATION SOURCE (unrecogn ized section and content) DATE CREATED AUTHOR 02/29/2024 [facility] Specialists EPIC [...] BE BASED ON THE PRIMARY CLINICAL RECORDS. [facility] [employer] provides no warranty or guarantee of the accuracy or completeness of information in this document.
[2024-03-08 08:11] VITALS: BP 131/70; PULSE 83
== END 2024-03-08 08:31 | disposition home or self-care (01) ==
LOC: FBCO 07:59 → FBC 08:00
PROVIDERS: Visit Provider Obstetrics & Gynecology
DX: O26.893 Other specified pregnancy related conditions, third trimester (principal)
CPT/HCPCS: 59025

== ENCOUNTER 2024-03-11 05:31 | Inpatient (IN) | payer OTHER, SELFPAY ==
[2024-03-11] VITALS (48 sets, daily range): BP systolic 101–135; BP diastolic 37–84; PULSE 76–95; TEMP 36.2–37.2; O2SAT 98–100
--- OUTSIDE RECORDS SUMMARY | 2024-03-11 05:34 | XMS_ITS ---
Patient Summarization (C-CDA 2.1 CCD) Created on: March 11, 2024 CAROL FLORES : 1995 Sex: Female Author Organization Sample organization Care Team Providers Care Grinding Wheel Inspector Name Role Phone RUBEN, ADRIANNA Attending Unavailable [...] Available Payers Date Payer Category Payer Medicaid [id number] 1995 Unknown [id number] .16.84 0.1.389613.3.579.2.9 1993 Unknown [id number] .16.84 0.1.711229.3.579.2.9 1993 Unknown [id number] 2.16.84 0.1.438303.3.579.2.1258 1993 Unknown [id number] 2.16.84 0.1.587244.3.579.2.1258 1993 Unknown [id number] 2.16.84 0.1.065954.3.579.2.1258 1993 Unknown [id number] 2.16.84 0.1.082738.3.579.2.1258 1993 Unknown [id number] 2.16.84 0.1.921683.3.579.2.1258 1993 Unknown [id number] 2.16.84 0.1.453751.3.579.2.1258 1993 Unknown [id number] 2.16.840 .1.738884.3.579.2.1259 Summary Purpose Family History No Family History Records Found Advance Directives No Advanced Directives Records Found Additional Source Comments INFORMATION SOURCE (unrecogn ized section and content) DATE CREATED AUTHOR 02/29/2024 [facility] Specialists EPIC FOR RECORDS PERTAINING TO [...] BE BASED ON THE PRIMARY CLINICAL RECORDS. [facility] [employer] provides no warranty or guarantee of the accuracy or completeness of information in this document.
[2024-03-11] MEDS: 0.9 % SODIUM CHLORIDE 1,000 ML 1000 ML IV ×2 (06:15→06:55)
[2024-03-11 06:41] LABS: Basophils Percent Auto 0.2 % (0.2-2.0); Eosinophils Absolute Auto 0.1 10^3/uL (0.0-0.7); Eosinophils Percent Auto 0.8 % (0.9-7.0); Hematocrit 32.8 % (36.0-48.0); Hemoglobin 10.9 g/dL (12.0-16.0); Immature Granulocytes Abs Auto 0.04 10^3/uL (0.00-0.03); Immature Granulocytes Pct Auto 0.5 % (0.0-0.5); Lymphocytes Absolute Auto 1.8 10^3/uL (1.2-3.8); Lymphocytes Percent Auto 21.6 % (20.5-60.0); Mean Corpuscular HGB Conc 33.2 g/dL (29.9-35.2); Mean Corpuscular Hemoglobin 30.8 pg (26.7-34.0); Mean Corpuscular Volume 92.7 fL (81.0-99.0); Mean Platelet Volume 12.4 fL (9.5-13.5); Monocytes Absolute Auto 0.8 10^3/uL (0.3-0.8); Monocytes Percent Auto 9.2 % (1.7-12.0); Neutrophils Absolute Auto 5.7 10^3/uL (1.4-6.5); Neutrophils Percent Auto 67.7 % (43.0-75.0); Platelet Count 147 10^3/uL (150-450); Red Blood Count 3.54 10^6/uL (4.20-5.40); Red Cell Distribution Width 12.5 % (11.0-15.0); White Blood Count 8.5 10^3/uL (4.0-11.0)
[2024-03-11] MEDS: FAMOTIDINE/PF 20 MG/2 ML VIAL IV (06:44)
[2024-03-11] MEDS: METOCLOPRAMIDE HCL 10 MG/2 ML VIAL IVP (06:45)
[2024-03-11] MEDS: CITRIC ACID/SODIUM CITRATE 30 ML SOLUTION ORACIT SHOHL'S SOLN PO (06:45)
[2024-03-11] MEDS: CEFAZOLIN SODIUM/DEXTROSE,ISO 2 GM/50 ML PIGGYBACK IV ×2 (06:55→13:27)
[2024-03-11 06:57] LABS: Amphetamine Screen Urine NEGATIVE (NEGATIVE); Barbiturates Screen Urine NEGATIVE (NEGATIVE); Benzodiazepines Screen Urine NEGATIVE (NEGATIVE); Buprenorphine Screen Urine NEGATIVE (NEGATIVE); Cannabinoid Screen Urine NEGATIVE (NEGATIVE); Cocaine Screen Urine NEGATIVE (NEGATIVE); Methadone Screen Urine NEGATIVE (NEGATIVE); Methamphetamines Screen Urine NEGATIVE (NEGATIVE); Opiate Screen Urine NEGATIVE (NEGATIVE); Oxycodone Screen Urine NEGATIVE (NEGATIVE); Phencyclidine Screen Urine NEGATIVE (NEGATIVE); Tricyclic Antidepressant Urine NEGATIVE (NEGATIVE)
[2024-03-11] MEDS: LACTATED RINGER'S SOLUTION 1,000 ML 50 ML IV (08:01)
--- NOTE | 2024-03-11 08:56 | PM.ONB ---
Brief Operative Note Date of procedure: 03/11/24 Pre-op diagnosis general: iup at 39wks previous c/s Post-op diagnosis: same as pre-op Procedure: NAME OF PROCEDURE: [ section with bilateral salpingectomy ] uterine incision was T fashion PROCEDURE: Patient was taken back to the Operating Room where she was given a spinal anesthesia with Duramorph without difficulty. She was prepped and draped in the normal sterile fashion. A Pfannenstiel skin incision was then made 2?cm above the symphysis pubis and carried down to underlying rectus fascia using a Bovie. The fascia was incised in the midline and extended laterally using Christensen scissors. Two Enrique clamps were placed on the superior aspect of the fascia and dissected off the underlying rectus muscles. The same was performed on the inferior aspect as well. The muscles were then in the midline. Peritoneum was identified and entered bluntly. The peritoneum was then extended superiorly and inferiorly with good visualization of the bladder. The bladder blade was inserted. Vesicouterine peritoneum was identified, tented up, and entered with Metzenbaum scissors. A bladder flap was then created digitally. The bladder blade was reinserted. A low transverse incision that was T'd on the patient's uterus and extended laterally digitally. The infant was then delivered atraumatically after the bladder blade was removed in the cephalic position. The cord was clamped and cut. Cord blood was obtained. The was handed off to awaiting team. The patient's placenta was spontaneously delivered. The uterus was then exteriorized. The uterus was cleared of all clots and debris. The bladder blade was reinserted. The patient's uterine incision was closed using #0 Vicryl in a running lock fashion. Excellent hemostasis was assured.? The rt tube was identified and grasped with babock, the ligasure was used to transect and ligate the tube in its entirity, this was done on the contralateral side as well. The uterus was then returned to the patient's abdomen. The patient's abdomen was copiously irrigated using warm saline. Peritoneal gutters were cleared of all clots and debris. Again excellent hemostasis was assured. The patient's fascia was closed using #0 Vicryl in a running fashion. The patient's skin was closed using 4-0 Vicryl subcuticularly. The patient tolerated the procedure well. Sponge, lap, and needle counts were correct x2. The patient was taken to the Recovery Room in stable condition. Anesthesia: spinal Surgeon: Anthony Estevez Marketing Production Manager: Liya Shaw Estimated blood loss (mL): 575 Pathology: other (tubes) Condition: stable Disposition: floor Urinary Catheter Management Urinary Catheter Management Urethral: Cath placed during this visit: no
--- NOTE | 2024-03-11 08:58 | PM.OBPRCCS ---
Procedure Pre-op/Post-op diagnoses: Pre-Op/Post-Op Diagnoses Operation Date: 03/11/24 07:30 <No data on this case meets the specified criteria> Procedure: Procedures Operation Date: 03/11/24 07:30 Actual Procedure Side Surgeon p repeat section with bilateral salpingectomy Bilateral Anthony Estevez DO Estimated blood loss (mL): 575 Disposition: floor Anesthesia type: Spinal
[2024-03-11] MEDS: OXYTOCIN/0.9 % SODIUM CHLORIDE 20 UNITS/1,000 ML PLAST..BAG 125 UNIT IV (09:37)
[2024-03-11] MEDS: KETOROLAC TROMETHAMINE 30 MG/ML VIAL IVP ×2 (14:25→21:55)
[2024-03-12 00:17] VITALS: BP 118/71
[2024-03-12 00:20] VITALS: BP 118/71; PULSE 85; TEMP 36.6
[2024-03-12] MEDS: SIMETHICONE 80 MG TAB.CHEW PO ×4 (02:09→19:37)
[2024-03-12 03:42] VITALS: BP 124/69; TEMP 36.7
[2024-03-12] MEDS: KETOROLAC TROMETHAMINE 30 MG/ML VIAL IVP ×3 (04:01→17:26)
[2024-03-12 05:32] LABS: Basophils Percent Auto 0.1 % (0.2-2.0); Eosinophils Percent Auto 0.1 % (0.9-7.0); Hematocrit 25.2 % (36.0-48.0); Hemoglobin 8.4 g/dL (12.0-16.0); Immature Granulocytes Abs Auto 0.08 10^3/uL (0.00-0.03); Immature Granulocytes Pct Auto 0.6 % (0.0-0.5); Lymphocytes Absolute Auto 1.9 10^3/uL (1.2-3.8); Lymphocytes Percent Auto 13.8 % (20.5-60.0); Mean Corpuscular HGB Conc 33.3 g/dL (29.9-35.2); Mean Corpuscular Hemoglobin 31.3 pg (26.7-34.0); Mean Platelet Volume 11.9 fL (9.5-13.5); Monocytes Absolute Auto 1.2 10^3/uL (0.3-0.8); Monocytes Percent Auto 8.5 % (1.7-12.0); Neutrophils Absolute Auto 10.6 10^3/uL (1.4-6.5); Neutrophils Percent Auto 76.9 % (43.0-75.0); Platelet Count 123 10^3/uL (150-450); Red Blood Count 2.68 10^6/uL (4.20-5.40); Red Cell Distribution Width 12.4 % (11.0-15.0); White Blood Count 13.7 10^3/uL (4.0-11.0)
--- NOTE | 2024-03-12 07:31 | PM.OBPN ---
OB - PN: Subj Subjective Patient comments: no complaints, pain well controlled, tolerating diet and flatus present [place] status: doing well Exam Constitutional Vital Signs, click to edit/add: Last Vital Signs Temp 98.0 F 03/12/24 03:42 Pulse 85 03/12/24 00:20 Resp 16 03/11/24 20:00 BP 124/69 03/12/24 03:42 Pulse Ox 98 03/11/24 16:44 O2 Del Method Room Air 03/12/24 03:40 Documenting provider has reviewed patient's vital signs: yes Common normals: no apparent distress Respiratory Common normals: normal respiratory effort and clear to auscultation bilaterally Cardio Common normals: regular rate and regular rhythm GI Common normals: Normal to inspection, nondistended, normoactive bowel sounds present Extremity Common normals: no clubbing, cyanosis or edema and no calf tenderness Results Labs Labs: Short CBC 03/12/24 Range/Units 05:19 WBC 13.7 H (4.0-11.0) 10^3/uL Hgb 8.4 L (12.0-16.0) g/dL Hct 25.2 L (36.0-48.0) % Plt Count 123 L (150-450) 10^3/uL Urinary Catheter Management Urinary Catheter Management Urethral: Cath placed during this visit: yes, but has since been removed by the nurse Removal date: 03/11/24 Removal time: 16:00 OB - PN: A/P Plan - day: 1 Plan: routine postop care Time Spent with Patient Time: Total time spent is greater than 50% in coordination of care (as documented) at patient's floor/unit and/or counseling patient: Total time spent with greater than 50% in coordination of care (as documented) at patient's floor/unit and/or counseling patient: less than 15 minutes
[2024-03-12] MEDS: DOCUSATE SODIUM 100 MG CAPSULE PO ×2 (08:16→21:56)
[2024-03-12 09:01] VITALS: BP 119/71
[2024-03-12 09:23] VITALS: PULSE 102; TEMP 36.6
[2024-03-12] MEDS: RHO(D) IMMUNE GLOBULIN 1,500 UNIT SYRINGE 1500 UNIT IM (16:09)
[2024-03-12] MEDS: OXYCODONE HCL/ACETAMINOPHEN 5MG/325MG 2 TAB PO (19:32)
--- NOTE | 2024-03-12 19:57 | PC.NURSE ---
tearful, c/o increased pain to rt lower abdomen cramping with bloating feeling to area after standing up to use BR when finished nursing
[2024-03-13] VITALS (7 sets, daily range): BP systolic 113–131; BP diastolic 62–74; PULSE 78–107; TEMP 36.6–36.9; O2SAT 98
[2024-03-13] MEDS: KETOROLAC TROMETHAMINE 30 MG/ML VIAL IVP (00:17)
[2024-03-13] MEDS: SIMETHICONE 80 MG TAB.CHEW PO (07:47)
[2024-03-13] MEDS: IBUPROFEN 400 MG TABLET 800 MG PO ×2 (07:47→20:42)
[2024-03-13] MEDS: DOCUSATE SODIUM 100 MG CAPSULE PO ×2 (07:48→20:42)
--- NOTE | 2024-03-13 10:16 | PM.OBPN ---
OB - PN: Subj Subjective Patient comments: no complaints, pain well controlled, tolerating diet and flatus present [place] infant status: doing well [place] feeding status: exclusively Narrative: MOM FEELS GREAT. VOICING NO CONCERNS. Exam Constitutional Vital Signs, click to edit/add: Last Vital Signs Temp 98.1 F 03/13/24 07:45 Pulse 78 03/13/24 07:45 Resp 16 03/13/24 07:45 BP 113/62 03/13/24 07:45 Pulse Ox 98 03/11/24 16:44 O2 Del Method Room Air 03/13/24 07:45 Documenting provider has reviewed patient's vital signs: yes Common normals: no apparent distress, oriented x3, no limitations, healthy appearing, alert and well nourished General appearance: cooperative and comfortable HENMT Common normals: normocephalic and head/scalp atraumatic Eye Common normals: PERRL Pupil: accommodation reflex normal Neck & C-Spine Common normals: full ROM and supple Respiratory Common normals: normal respiratory effort Cardio Common normals: regular rate and regular rhythm GI Common normals: Normal to inspection, nondistended, normoactive bowel sounds present, soft to palpation and non-tender Common normals: no CVA tenderness Back & Pelvis Common normals: no thoracic nor lumbar tenderness Extremity Common normals: normal to inspection, full ROM and no calf tenderness Neuro Common normals: CN's II-XII intact bilaterally, moves all extremities, no focal motor deficits and no sensory deficits noted Psych Common normals: mental status grossly normal, thought process normal, cooperative, affect normal and speech normal Urinary Catheter Management Urinary Catheter Management Urethral: Cath placed during this visit: yes, but has since been removed by the nurse Removal date: 03/11/24 Removal time: 16:00 OB - PN: A/P Assessment and Plan (1) S/P repeat low transverse : Assessment and Plan: REPEAT LTCS WITH TUBAL LIGATION. UTERUS HAS T INCISION. FEELS WELL. AMBULATING, EATING NORMALLY. PASSING FLATUS. BREAST FEEDING. VOICING NO COMPLAINTS. HEMOGLOBIN 8 PLUS BUT ASYMPTOMATIC. IS ON IRON. Plan - day: 2 Plan: routine postop care Time Spent with Patient Time: Total time spent is greater than 50% in coordination of care (as documented) at patient's floor/unit and/or counseling patient: Total time spent with greater than 50% in coordination of care (as documented) at patient's floor/unit and/or counseling patient: less than 15 minutes
[2024-03-13] MEDS: IRON PS COMPLEX/B12/FOLIC ACID CAPSULE 1 CAP PO (11:10)
[2024-03-14] MEDS: IRON PS COMPLEX/B12/FOLIC ACID CAPSULE 1 CAP PO (07:38)
[2024-03-14] MEDS: IBUPROFEN 400 MG TABLET 800 MG PO (07:38)
[2024-03-14] MEDS: DOCUSATE SODIUM 100 MG CAPSULE PO (07:39)
--- NOTE | 2024-03-14 07:55 | P.OBPN_ITS ---
OB - PN: Subj Subjective Patient comments: no complaints and pain well controlled [place] status: doing well Exam Constitutional Vital Signs, click to edit/add: Last Vital Signs Temp 98.2 F 03/13/24 22:29 Pulse 106 H 03/13/24 22:29 Resp 16 03/13/24 22:29 BP 124/74 03/13/24 22:29 Pulse Ox 98 03/13/24 07:37 O2 Del Method Room Air 03/13/24 22:29 Documenting provider has reviewed patient's vital signs: yes Common normals: no apparent distress Respiratory Common normals: normal respiratory effort and clear to auscultation bilaterally Cardio Common normals: regular rate and regular rhythm GI Common normals: Normal to inspection, nondistended, normoactive bowel sounds present Extremity Common normals: no clubbing, cyanosis or edema and no calf tenderness Urinary Catheter Management Urinary Catheter Management Urethral: Cath placed during this visit: yes, but has since been removed by the nurse Removal date: 03/11/24 Removal time: 16:00 OB - PN: A/P Assessment and Plan (1) S/P repeat low transverse : Plan - day: 3 Plan: routine postop care, discharge home and other (fu 1wk, precautions given) Time Spent with Patient Time: Total time spent is greater than 50% in coordination of care (as documented) at patient's floor/unit and/or counseling patient: Total time spent with greater than 50% in coordination of care (as documented) at patient's floor/unit and/or counseling patient: less than 15 minutes
--- NOTE | 2024-03-14 11:20 | DS_ITS ---
DISCHARGE DATE: ??03/14/2024 PRIMARY DIAGNOSES: 1.? History of previous with placental abruption at 36-37 weeks, resulting in emergency . ?Patient having increased pain due to either scar tissue or possible placental abnormality.? Decided to proceed with section at 38 weeks due to prior history of abruption. 2.? Intrauterine at 38 weeks. 3.? Previous . PROCEDURE:? Repeat section with bilateral salpingectomy with uterine incision was a T-fashion.? HOSPITAL COURSE:? As expected.? Please see chart for full details.? LABORATORY DATA:? Please see chart. COMPLICATIONS:? None. DISCHARGE CONDITION:? Stable. CONSULTATION:? Anesthesia. DISCHARGE INSTRUCTIONS: 1.? Diet:? Regular. 2.? Medications: a.? Percocet 5/325 one to two p.o. every 4-6 hours p.r.n. pain. b.? Motrin 800 one p.o. every 8 hours p.r.n. pain. 3.? Followup in one week. Restrictions:? Pelvic rest for 6 weeks.? No heavy lifting.? May drive when pain free and no longer on narcotics. MTDD
== END 2024-03-14 11:20 | disposition home or self-care (01) | DRG 539 ==
PROVIDERS: Admitting Provider Obstetrics & Gynecology; Visit Provider Obstetrics & Gynecology
PROC: 10D00Z1 Extraction of Products of Conception, Low, Open Approach (ICD-10-PCS; CPT 59514; principal; 2024-03-11 07:30)
DX: O34.218 Maternal care for other type scar from previous cesarean delivery (principal); O43.893 Other placental disorders, third trimester; O26.893 Other specified pregnancy related conditions, third trimester; Z3A.38 38 weeks gestation of pregnancy; Z37.0 Single live birth; Z67.41 Type O blood, Rh negative; O99.62 Diseases of the digestive system complicating childbirth; K21.9 Gastro-esophageal reflux disease without esophagitis
CPT/HCPCS: 36415; 51702; 59025; 80307; 85025; 85461; 86850; 86900; 86901; 88302; 94667; 94668; 96372; 96374; 96375; 96376; J0665; J0690; J1100; J1170; J1200; J1885; J2274; J2371; J2405; J2590; J2765; J2790; J3010

== ENCOUNTER 2024-11-13 19:46 | Outpatient (REF) | payer OTHER, SELFPAY ==
--- OUTSIDE RECORDS SUMMARY | 2024-11-13 19:50 | XMS_ITS | CCD ---
Author Organization [facility] ion Partnership [facility] Care Team Providers Care Fleece Tier Name Role Phone MD Tila Bauman Primary Care Provider [phone] Adrianna Estevez Attending Provider Tila Bauman Primary Care Unavailable Herb, Adrianna Attending Unavailable Herb, Adrianna Admitting Unavailable HERB, ADRIANNA Attending Unavailable ELISEO, TAYLOR Attending Unavailable HERB, ADRIANNA Attending Unavailable ELISEO, TAYLOR Attending Unavailable HERB, ADRIANNA Attending Unavailable HERB, ADRIANNA Attending Unavailable HERB, ADRIANNA Attending Unavailable ELISEO, TAYLOR Attending Unavailable HERB, ADRIANNA Attending Unavailable HERB, ADRIANNA Attending Unavailable ELISEO, TAYLOR Attending Unavailable Tila Bauman MD Primary Care Provider Tila Bauman MD Unavailable Allergies Allergy Classification Reported Allergen(s) Allergy Type Date of Onset Reaction(s) Facility (5 sources) Cefixime; Translations: [cefixime] Drug Allergy 1 [facility] (5 sources) Cetirizine; Translations: [cetirizine] Drug Allergy 1 rash anithystamines [facility] (5 sources) diphenhydrAMINE ; Translations: [diphenhydramin e] Drug Allergy 1 Unknown, Rash [facility] (3 sources) Morphine Drug Allergy 3 Rash, Hives [facility] Medications Current Medications Medication Drug Class(es) Dates Sig (Normalized) Sig (Original) acetaminophen 325 mg / oxyCODONE hydrochloride 5 mg oral tablet (3 sources) Opioid Agonist Start: 4 End: 5 take 1 tablet by mouth every six hours as needed for pain and pain oxyCODONE-acetaminophe n (Percocet) 5-325 MG tablet Take 1 tablet by mouth every 6 (six) hours if needed for moderate pain or severe pain 03/14/2024 11/13/2024 Discontinued ibuprofen 800 mg oral tablet (3 sources) Nonsteroidal Anti-inflammator y Drug Start: 4 End: 5 take 1 tablet by mouth in the morning, then take 1 tablet by mouth in the evening, then take 1 tablet by mouth at bedtime ibuprofen 800 MG tablet Take 800 mg by mouth in the morning and 800 mg in the evening and 800 mg before bedtime. 03/14/2024 11/13/2024 Discontinued medroxyPROGESTERone acetate 10 mg oral tablet (2 sources) Progestin Start: End: 5 take 1 tablet by mouth once daily medroxyPROGESTERone (Provera) 10 MG tablet Indications: PCOS (polycystic ovarian syndrome) Take 1 tablet (10 mg) by mouth Daily for 14 days 14 tablet 11/13/2024 11/27/2024 Active MV & Min w/FA-DHA ( ADULT GUMMY/DHA/FA PO) (3 sources) End: MV & Min w/FA-DHA ( ADULT GUMMY/DHA/FA PO) Take by mouth 11/13/2024 Discontinued MV & Mi n w/FA-DHA ( ADULT GUMMY/DHA/FA PO) Take by mouth Active Problems Active Problems Problem Classification Problem Date Documented Date Episodic/Chronic Adjustment disorders (3 sources) Stress; Translations: [Reaction to severe stress, unspecified] Onset: 06-14-2023 06-14-2023 Chronic Esophageal disorders (3 sources) Gastroesophageal reflux disease without esophagitis; Translations: [Gastro-esophageal reflux disease without esophagitis] Onset: 06-14-2023 06-14-2023 Chronic Other endocrine disorders (2 sources) Polycystic ovary syndrome; Translations: [Polycystic ovarian syndrome] 11-13-2024 Chronic Past or Other Problems Problem Classification Problem Date Documented Date Episodic/Chronic Contraceptive and procreative management (3 sources) Sterilization requested; Translations: [Encounter for sterilization] Onset: 02-21-2024 02-21-2024 Episodic Residual codes; unclassified (3 sources) H/O: miscarriage; Translations: [Personal history of other complications of , childbirth and the puerperium] Onset: 12-27-2023 12-27-2023 Episodic Residual codes; unclassified (3 sources) Gestation period, 27 weeks; Translations: [27 weeks gestation of ] Onset: 12-27-2023 Resolved: 03-12-2024 03-13-2024 Episodic Results Test Name Value Interpretation Reference Range Facil ity Roque 03-11-2024 L Specimen: [id number] Received: 03/11/24 Status: CHRISTIANE Lara Num: [id number] Spec Type: Surgical Subm Dr: Adrianna Estevez Tissues: A Fallopian Tube - Sterilization (BILATERAL FT) Procedures: HE/2, Gross/Micro L2 Age/ Patient Sex Location Account Attending Physician Adriana Cameron / LABELL [id number] Adrianna Estevez SPEC NUM: [id number] RECD: 03/11/24 STATUS: CHRISTIANE KHANNADale NUM: [id number] JAM: 03/11/[address]: Adrianna Estevez ENTERED: 03/11/24 [facility] DR: Ela,Lab SPEC TYPE: Surgical DEPT: LESLY [place]ON ORDERED: HE/2, Gross/Micro L2 ORDERED: HE/2, Gross/Micro L2 Pathological Diagnosis Bilateral fallopian tubes, bilateral salpingectomy: -Bilateral intact fimbriated fallopian tubes without significant histopathological findings in both tubes Clinical Information Previous section, desires sterilization. Gross Description Received in formalin labeled with the patient's name, date of and bilateral fallopian tubes are 2 undesignated fimbriated fallopian tubes assigned as #1 and #2. Each tube is covered by mello-purple serosa. Tube #1 measures 11.3 cm in length by 0.6 to 1.0 cm in diameter and tube #2 measures 9.6 cm in length by 0.6 to 0.9 cm in diameter. Cut sections for each tube demonstrate an intact luminal center lined by unremarkable mello mucosa. Cutter Operator Asbestos Shingle sections of each tube are submitted in A1 (tube #1) and A2 (tube #2). CPT Codes 93350 Specimen: [id number] Received: 03/11/24 Status: CHRISTIANE Lara Num: [id number] Spec Type: Surgical Subm Dr: Adrianna Estevez Tissues: A Fallopian Tube - Sterilization (BILATERAL FT) Procedures: Elaine PLASCENCIA/Darline L2 Patient: Adriana Cameron [id number] (Continued) Signed (signature on file) Terry Waller MD 03/13/24 [address] [facility] Vital Signs Date Time Vital Sign Value Performing Clinician Estiven spears 11-13-2024 09:57-0500 Body mass index (BMI) [Ratio] 28.35 kg/m2 Adrianna Herb DO Work Phone: [facility] 11-13-2024 09:57-0500 Body weight 80.29 kg Adrianna Herb DO Work Phone: [facility] 11-13-2024 09:57-0500 Diastolic blood pressure 70 mm[Hg] Adrianna Herb DO Work Phone: [facility] 11-13-2024 09:57-0500 Systolic blood pressure 120 mm[Hg] Adrianna Herb DO Work Phone: [facility] Encounters Encounter Date Encounter Type Care Provider Facility Start: 11-13-2024 End: 11-13-2024 Bamboo flowsheet Adrianna Herb DO Work Phone: [facility] Start: 11-13-2024 End: 11-13-2024 Bamboo flowsheet Adrianna Herb DO Work Phone: [facility] Start: 11-13-2024 End: 11-13-2024 Patient encounter procedure Adrianna Herb DO Work Phone: [facility] Work Phone: Start: 11-13-2024 End: 11-13-2024 Periodic preventive med est patient 18-39 yrs Adrianna Herb DO Work Phone: [facility] Comment on above: PCOS (polycystic ova christofer syndrome) (Primary Dx); Well woman exam with routine gynecological exam Start: 04-22-2024 End: 04-22-2024 ambulatory TAYLOR GOMES Not Available Start: 03-18-2024 End: 03-18-2024 ambulatory ADRIANNA HERB Not Available Start: 03-11-2024 End: 03-11-2024 ambulatory MD Tila Bauman Work Phone: [facility] Work Phone: Start: 03-11-2024 End: 03-11-2024 Departed Referred MD Tila Bauman Work Phone: [facility] Start: 03-06-2024 End: 03-06-2024 ambulatory ADRIANNA HERB Not Available Start: 02-27-2024 End: 02-27-2024 ambulatory TAYLOR GOMES Not Available Start: 02-21-2024 End: 02-21-2024 ambulatory ADRIANNA HERB Not Available Start: 02-07-2024 End: 02-07-2024 ambulatory ADRIANNA HERB Not Available Start: 01-24-2024 End: 01-24-2024 ambulatory ADRIANNA HERB Not Available Start: 01-10-2024 End: 01-10-2024 ambulatory TAYLOR GOMES Not Available Start: 12-27-2023 End: 12-27-2023 ambulatory ADRIANNA HERB Not Available Start: 11-29-2023 End: 11-29-2023 ambulatory TAYLOR GOMES Not Available Start: 11-01-2023 End: 11-01-2023 ambulatory ADRIANNA HERB Not Available Start: 10-04-2023 End: 10-04-2023 ambulatory ADRIANNA HERB Not Available Procedures Date Procedure Procedure Detail Performing Clinician Start: 11-01-2023 Microscopic observat ion [Identifier] in Cervix by Cyto stain Adrianna Herb DO Work Phone: Plan of Treatment Date Care Activity Detail Author Start: 11-01-2028 Screening for malign ant neoplasm of cervix [facility] Start: 11-13-2024 End: 11-13-2025 DHEA DHEA Lab Routine PCOS (polycystic ovarian syndrome) Expected: 11/13/2024 (Approximate), Expires: 11/13/2025 [facility] Comment on above: Expected: 11/13/2024 (Approximate), Expires: 11/13/2025 Start: 11-13-2024 End: 11-13-2025 US Pelvis US Pelvis w/ TV Imaging Routine PCOS (polycystic ovarian syndrome) Expected: 11/13/2024, Expires: 11/13/2025 [facility] Comment on above: Expected: 11/13/2024 , Expires: 11/13/2025 Start: 06-08-2024 Influenza vaccination Influenza Vacc ine (#1) [facility] CBC W Auto Different ial panel - Blood CBC and differential Lab Routine PCOS (polycystic ovarian syndrome) Ordered: 11/13/2024 [facility] Comment on above: Ordered: 11/13/2024 Cytology Cervical or vaginal smear or scraping study Pap Smear Pathology and Cytology Routine Well woman exam with routine gynecological exam Ordered: 11/13/2024 [facility] Work Phone: Comment on above: Ordered: 11/13/2024 DHEA-sulfate DHEA-sulfate Lab Routine PCOS (polycystic ovarian syndrome) Ordered: 11/13/2024 [facility] Comment on above: Ordered: 11/13/2024 Follicle stimulating hormone Follicle stimulating hormone Lab Routine PCOS (polycystic ovarian syndrome) Ordered: 11/13/2024 [facility] Comment on above: Ordered: 11/13/2024 hCG, quantitative, hCG, quantitative, Lab Routine PCOS (polycystic ovarian syndrome) Ordered: 11/13/2024 [facility] Work Phone: Comment on above: Ordered: 11/13/2024 Hemoglobin A1c/Hemoglobin.total in Blood Hemoglobin A1c Lab Routine PCOS (polycystic ovarian syndrome) Ordered: 11/13/2024 [facility] Comment on above: Ordered: 11/13/2024 Human papilloma viru s DNA [Presence] in Unspecified specimen by Probe with amplification HPV DNA probe, amplified Microbiology Routine Well woman exam with routine gynecological exam Ordered: 11/13/2024 [facility] Comment on above: Ordered: 11/13/2024 Luteinizing hormone Luteinizing hormone Lab Routine PCOS (polycystic ovarian syndrome) Ordered: 11/13/2024 [facility] Comment on above: Ordered: 11/13/2024 Thyrotropin [Units/volume] in Serum or Plasma TSH Lab Routine PCOS (polycystic ovarian syndrome) Ordered: 11/13/2024 [facility] Comment on above: Ordered: 11/13/2024 Thyroxine (T4) free [Mass/volume] in Serum or Plasma T4, free Lab Routine PCOS (polycystic ovarian syndrome) Ordered: 11/13/2024 [facility] Comment on above: Ordered: 11/13/2024 Immunizations Immunization Date Immunization Notes Care Provider Betsey macdonald 02-24-2021 Bjorna SARS-CoV-2 Vaccination Adrianna Estevez DO Work Phone: [facility] 05-12-1998 diphtheria, tetanus toxoids and acellular pertussis vaccine, unspecified formulation Adrianna Herb DO Work Phone: [facility] 05-12-1998 measles, mumps and rubella virus vaccine Adrianna Herb DO Work Phone: [facility] 08-21-1994 diphtheria, tetanus toxoids and acellular pertussis vaccine, unspecified formulation Adrianna Herb DO Work Phone: [facility] 08-21-1994 trivalent poliovirus vaccine, live, oral Adrianna Herb DO Work Phone: [facility] 04-24-1994 haemophilus influenz ae type b vaccine, conjugate unspecified formulation Adrianna Herb DO Work Phone: [facility] 04-24-1994 measles, mumps and rubella virus vaccine Adrianna Herb DO Work Phone: [facility] 03-13-1994 hepatitis B vaccine, pediatric or pediatric/adolescent dosage Adrianna Herb DO Work Phone: [facility] 1993 hepatitis B vaccine, pediatric or pediatric/adolescent dosage Adrianna Herb DO Work Phone: [facility] 1993 diphtheria, tetanus toxoids and pertussis vaccine Adrianna Herb DO Work Phone: [facility] 1993 haemophilus influenz ae type b vaccine, conjugate unspecified formulation Adrianna Herb DO Work Phone: [facility] 1993 hepatitis B vaccine, pediatric or pediatric/adolescent dosage Adrianna Herb DO Work Phone: [facility] 1993 diphtheria, tetanus toxoids and pertussis vaccine Adrianna Herb DO Work Phone: [facility] 1993 haemophilus influenz ae type b vaccine, conjugate unspecified formulation Adrianna Herb DO Work Phone: [facility] 1993 trivalent poliovirus vaccine, live, oral Adrianna Herb DO Work Phone: [facility] 1993 diphtheria, tetanus toxoids and pertussis vaccine Adrianna Herb DO Work Phone: [facility] 1993 haemophilus influenz ae type b vaccine, conjugate unspecified formulation [facility] DO Work Phone: [facility] 1993 trivalent poliovirus vaccine, live, oral [facility] DO Work Phone: [facility] Healthcare Payers Date Payer Category Payer Self-pay 2023 Medicaid (Managed Care) MELTON M MISTI [id number] 2023 Medicaid [id number] 1993 Unknown [id number]. 1258 1993 Unknown [id number] [id number]. 1258 1993 Unknown [id number] [id number]. 1258 1993 Unknown [id number]. 1258 1993 Unknown [id number] [id number]. 1258 1993 Unknown [id number] [id number]. 1258 1993 Unknown [id number] [id number]. 1258 1993 Unknown [id number] [id number]. 1259 1993 Unknown [id number] [id number]. 9 1993 Unknown [id number] [id number]. 1259 1993 Unknown [id number] [id number]. 1259 1993 Unknown [id number]. 1259 Social History Date Type Detail Facility Tobacco smoking stat [facility] Unknown if ever smoked [facility] Work Phone: Start: 1995 Sex Assigned At Female F [facility] Start: 06-15-2023 Tobacco smoking stat [facility] Never smoked tobacco [facility] Start: 06-15-2023 Tobacco use and exposure Smoke less tobacco non-user [facility] Start: 04-22-2024 End: 11-13-2024 Alcoholic beverage intake Ex-drinker (finding) [facility] Start: 06-13-2023 End: 04-22-2024 Alcoholic beverage intake [facility] Start: 06-13-2023 End: 11-29-2023 Humiliation, Afraid, Rape, and Kick questionnaire [HARK] [facility] Within the last year , have you been afraid of your partner or ex-partner? No [facility] How often do you att end meetings of the clubs or organizations you belong to? Patient declined [facility] Are you now , , , , never or living with a partner? [facility] How often to you hav e a drink containing alcohol? Monthly or less [facility] How many standard dr inks containing alcohol do you have on a typical day? 1 or 2 [facility] How often do you hav e 6 or more drinks on 1 occasion? Never [facility] How hard is it for y ou to pay for the very basics like food, housing, medical care, and heating Not very hard [facility] Do you feel stress - tense, restless, nervous, or anxious, or unable to sleep at night because your mind is troubled all the time - these days [OSQ] To some extent [facility] (I/We) worried wheth er (my/our) food would run out before (I/we) got money to buy more. Never true [facility] Start: 06-15-2023 Alcohol Comment Once in a while [facility] Start: 1995 Sex assigned at Not on file [facility] NEGATED: Highlighted rowStart: NINF History of tobacco use Passive smoker [facility] History of Present illness Narrative 11-13-2024 KUMAR Romero - 11/13/2024 9:30 AM EST Note Date & Type Note Facility 11-13-2024 History of Presen t illness Narrative Reason for Appointment: Patient ID: Adriana Cameron is a 29 y.o. female who presents for Well Women Visit Patient presents today for Annual Exam. MEDICATIONS No current outpatient medications ALLERGIES Allergies Allergen Reactions Morphine Rash and Hives possible Cetirizine Other Reaction(s): rash anithystamines Cefixime Rash Suprax Diphenhydramine Unknown and Rash PROBLEMS Active Ambulatory Problems Diagnosis Date Noted Gastroesophageal reflux disease without esophagitis 06/14/2023 Stress 06/14/2023 History of miscarriage 12/27/2023 Request for sterilization 02/21/2024 Resolved Ambulatory Problems Diagnosis Date Noted 27 weeks gestation of 12/27/2023 Past Medical History: Diagnosis Date GERD (gastroesophageal reflux disease) HISTORY PAST MEDICAL HISTORY SOCIAL HISTORY Past Medical History: Diagnosis Date GERD (gastroesophageal reflux disease) Stress Social History Tobacco Use Smoking status: Never Passive exposure: Never Smokeless tobacco: Never Vaping Use Vaping status: Never Used Substance Use Topics Alcohol use: Not Currently Alcohol/week: 1.0 standard drink of alcohol Types: 1 Glasses of wine per week Comment: Once in a while Drug use: Never FAMILY HISTORY Family History Problem Relation Name Age of Onset Heart disease Father Hypothyroidism Father Mental illness Brother Diabetes Maternal Grandmother Diabetes Maternal Grandfather Diabetes Paternal Grandmother Diabetes Paternal Grandfather Learning disabilities Son Len SURGICAL HISTORY Past Surgical History: Procedure Laterality Date SECTION, CLASSIC 03/12/2024 SECTION, LOW TRANSVERSE 03/07/2014 SECTION, LOW TRANSVERSE 05/03/2015 CYST REMOVAL Right ear as an REVIEW OF SYSTEMS Review of Systems: Review of Systems Constitutional: Negative. HENT: Negative. Eyes: Negative. Respiratory: Negative. Cardiovascular: Negative. Gastrointestinal: Negative. Genitourinary: Negative. Musculoskeletal: Negative. Skin: Negative. Neurological: Negative. All other systems reviewed and are negative. Hematological: Negative. Endocrine: Negative. Allergic/Immunologic: Negative. OBJECTIVE Objective: Physical Exam Constitutional: Appearance: Normal appearance. Genitourinary: Right Adnexa: not tender and no mass present. Left Adnexa: not tender and no mass present. No cervical discharge. Breasts: Breasts are soft. Right: Normal. Left: Normal. HENT: Head: Normocephalic. Nose: Nose normal. Mouth/Throat: Mouth: Mucous membranes are moist. Cardiovascular: Rate and Rhythm: Normal rate. Pulmonary: Effort: Pulmonary effort is normal. Abdominal: General: Bowel sounds are normal. Palpations: Abdomen is soft. Musculoskeletal: General: Normal range of motion. Cervical back: Normal range of motion. Neurological: General: No focal deficit present. Mental Status: She is alert. Skin: General: Skin is warm and dry. Psychiatric: Mood and Affect: Mood normal. Vitals and nursing note reviewed. Exam conducted with a neurologist present. Vitals: Estimated body mass index is 28.35 kg/m as calculated from the following: Height as of 06/15/23: 5' 6.25 . Weight as of this encounter: 177 lb. BP: 120/70 No LMP recorded (within months). ASSESSMENT & PLAN ICD-10-CM 1. PCOS (polycystic ovarian syndrome) E28.2 hCG, quantitative, TSH T4, free CBC and differential Follicle stimulating hormone Luteinizing hormone Hemoglobin A1c DHEA-sulfate DHEA US Pelvis w/ TV DHEA 2. Well woman exam with routine gynecological exam Z01.419 Pap Smear HPV DNA probe, amplified Annual Exam: Patient presents today for an annual exam. Patient states she is doing well states having irregular periodsPap was obtained without difficulty. Orders Placed This Encounter Procedures HPV DNA probe, amplified US Pelvis w/ TV hCG, quantitative, TSH T4, free CBC and differential Follicle stimulating hormone Luteinizing hormone Hemoglobin A1c DHEA-sulfate DHEA Patient getting labs and ultrasound done, we discussed IUD. Patient will follow up with in 2-3 weeks to get IUD placed. Patient will complete 14 days of provera to help with bleeding Follow Up: Patient is to return in 2-3 weeks for iud placement Documented by KUMAR Romero on behalf of: Adrianna Estevez DO documented in this encounter [facility] Evaluation note Note Date & Type Note Facility Evaluation note No assessment information [facility] Work Phone: Evaluation note Note Date & Type Note Facility Evaluation note Diagnosis PCOS (polycystic ovarian syndrome)- Primary Polycystic ovaries Well woman exam with routine gynecological exam Routine gynecological examination documented in this encounter [facility] Summary Purpose Family History No Family History Records FoundNo Family History Records Found Advance Directives No Advanced Directives Records FoundNo Advanced Directives Records Found Additional Source Comments Care Teams (unrecognized sec tion and content) Team Status: Active Member Role Status Dates Tila Bauman MD Primary Care Provider Active Team Status: Inactive Member Role Status Dates Tila Bauman MD Primary Care Provider Active Start: March 11, 2024 End: March 11, 2024 Adrianna Estevez Attending Provider Active Start: Kenzie dewitt 2023 End: March 11, 2024 Fleece Tier Relationship Specialty Start Date End Date Tila Bauman MD [address] [facility] [place] [address] PCP - General Family Medicine 02/13/23 Tila Bauman MD [address] [place] [address] PCP - [facility] 01/07/24 Fleece Tier Relationship Specialty Start Date End Date Tila Bauman MD [address] [facility] [place] [address] PCP - General Family Medicine 02/13/23 Tila Bauman MD [address] [place] [address] [facility] 01/07/24 Goals (unrecognized section and content) Goals may be documented in a n alternate section INFORMATION SOURCE (unrecogn ized section and content) DATE CREATED AUTHOR 03/15/2024 [facility] DATE CREATED AUTHOR ALANIS DACOSTA 04/26/2024 [facility] EPIC Reason for Visit (unrecogniz ed section and content) Reason Comments Well Women Visit FOR RECORDS PERTAINING TO PATIENTS WHO ARE [...] BE BASED ON THE PRIMARY CLINICAL RECORDS. [facility] [employer] provides no warranty or guarantee of the accuracy or completeness of information in this document.
[2024-11-19 15:07] LABS: Age Gdln ACOG Testing Note (.); HPV Aptima Negative (Negative); IGP, Aptima HPV, rfx 16/18,45 Note (.)
== END 2024-11-13 19:47 | disposition home or self-care (01) ==
LOC: LAB 19:46
PROVIDERS: Visit Provider Obstetrics & Gynecology
DX: Z01.419 Encounter for gynecological examination (general) (routine) without abnormal findings (principal)
CPT/HCPCS: 87624; 88175

== ENCOUNTER 2024-12-06 09:19 | Outpatient (OUT) | payer OTHER, SELFPAY ==
--- OUTSIDE RECORDS SUMMARY | 2024-12-05 10:26 | XMS_ITS | CCD ---
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 Role Phone MD Tila Bauman Primary Care Provider Adrianna Estevez Attending Provider Tila Bauman Primary Care Unavailable HerbAdrianna alarcon Attending Unavailable Adrianna Estevez Admitting Unavailable Tila Bauman MD Primary Care Provider Tila Bauman MD Unavailable ADRIANNA ESTEVEZ Attending Unavailable ELISEOTAYLOR GARCIA Attending Unavailable HERB, ADRIANNA Attending Unavailable ELISEO TAYLOR Attending Unavailable HERB, ADRIANNA Attending Unavailable HERB, ADRIANNA Attending Unavailable HERB, ADRIANNA Attending Unavailable ELISEO, TAYLOR Attending Unavailable HERB, ADRIANNA Attending Unavailable HERB, ADRIANNA Attending Unavailable ELISEO, TAYLOR Attending Unavailable Allergies Allergy Classification Reported Allergen(s) Allergy Type Date of Onset Reaction(s) Facility (6 sources) Cefixime; Translations: [cefixime] Drug Allergy 1 [facility] (6 sources) Cetirizine; Translations: [cetirizine] Drug Allergy 1 rash anithystamines [facility] (6 sources) diphenhydrAMINE ; Translations: [diphenhydramin e] Drug Allergy 1 Unknown, Rash [facility] (4 sources) Morphine Drug Allergy 3 Rash, Hives [...] Discontinued medroxyPROGESTERone acetate 10 mg oral tablet (3 sources) Progestin Start: End: 5 take 1 [...] Problem Date Documented Date Episodic/Chronic Adjustment disorders (4 sources) Stress; Translations: [Reaction to severe stress, unspecified] Onset: 06-14-2023 06-14-2023 Chronic Esophageal disorders (4 sources) Gastroesophageal reflux disease without esophagitis; Translations: [Gastro-esophageal reflux disease without esophagitis] Onset: 06-14-2023 06-14-2023 Chronic Other endocrine disorders (2 sources) Polycystic ovary syndrome; Translations: [Polycystic ovarian syndrome] 11-13-2024 Chronic Past or Other Problems Problem Classification Problem Date Documented Date Episodic/Chronic Contraceptive and procreative management (4 sources) Sterilization requested; Translations: [Encounter for sterilization] Onset: 02-21-2024 02-21-2024 Episodic Residual codes; unclassified (4 sources) H/O: miscarriage; Translations: [Personal history of other complications of , childbirth and the puerperium] Onset: 12-27-2023 12-27-2023 Episodic Residual codes; unclassified (4 sources) Gestation period, 27 weeks; Translations: [27 weeks gestation of ] Onset: 12-27-2023 Resolved: 03-12-2024 03-13-2024 Episodic Results Test Name Value Interpretation Reference Range Facil ity IGP,APTIMA HPV,AGE GDLNon AGE GDLN ACOG TESTING Note . [facility] Comment on above: TESTS RESULT FLAG UNITS REF RANGE LAB Clinician Provided Cytology Information Source.............Cervix;Endocervix No. of containers..01 ThinPrep Vial Age Algo ACOG Ida... 3065 01 FLAG LEGEND: L-Low Normal,H-High Normal,LL-Alert Low,HH-Alert High <-Panic Low,>-Panic High,A-Abnormal,AA-Critical Abnormal Performed at: 01 =G [address] [address] Taisha Montes De Oca MD, HPV APTIMA Negative Negative [facility] Comment on above: This nucleic acid amplification test det ects fourteen high- risk HPV types (16,18,31,33,35,39,45,51,52,56,58,59,66,68) without differentiation. Performed at: =G - [facility], [place] [id number] Gate Agent: Taisha Montes De Oca MD, Phone: [phone] Performed at: WB - [facility], [place] [id number] Gate Agent: Taisha Montes De Oca MD, Phone: [phone] IGP, APTIMA HPV, RFX 16/18,45 Note . [facility] Comment on above: TESTS RESULT FLAG UNITS REF RANGE LAB DIAGNOSIS: 02 NEGATIVE FOR INTRAEPITHELIAL LESION OR MALIGNANCY. Specimen adequacy: 02 Satisfactory for evaluation. Endocervical and/or squamous metaplastic cells (endocervical component) are present. Performed by: Cash Teixeira, Brim Presser (ASC) . 02 Note: Note 02 The Pap smear is a screening test designed to aid in the detection of premalignant and malignant conditions of the uterine cervix. It is not a diagnostic procedure and should not be used as the sole means of detecting cervical cancer. Both false-positive and false-negative reports do occur. Test Methodology: Note 02 This liquid based ThinPrep(R) pap test was screened with the use of an image guided system. HPV Genotype Reflex Note 02 Criteria not met, HPV Genotype not performed. FLAG LEGEND: L-Low Normal,H-High Normal,LL-Alert Low,HH-Alert High <-Panic Low,>-Panic High,A-Abnormal,AA-Critical Abnormal Performed at: [address] [facility] [address] [place] [address] Taisha Montes De Oca MD, BRUSH-SPATULA CERVIX ENDOCERVIX [facility] Nevarez 03-11-2024 L Specimen: [id number] Received: 03/11/24 Status: CHRISTIANE Req Num: [id number] Spec Type: Surgical Subm Dr: Adrianna Estevez Tissues: A Fallopian Tube - Sterilization (BILATERAL FT) Procedures: HE/2, Gross/Micro L2 Age/ Patient Sex Location Account Attending Physician RakeshAdriana M / LABELL [id number] Adrianna Estevez SPEC NUM: [id number] RECD: 03/11/24 STATUS: CHRISTIANE KHANNADeonte NUM: [id number] JAM: 03/11/[address]: Adrianna Estevez ENTERED: 03/11/24 [facility] DR: Ela,Lab SPEC TYPE: Surgical DEPT: [...] luminal center lined by unremarkable mello mucosa. Gifted Teacher sections of each tube are submitted in A1 (tube #1) and A2 (tube #2). CPT Codes 48201 Specimen: [id number] Received: 03/11/24 Status: CHRISTIANE Khannadeonte Num: [id number] Spec Type: Surgical Subm Dr: Adrianna Estevez Tissues: A Fallopian Tube - Sterilization (BILATERAL FT) Procedures: HE/2, Gross/Micro L2 Patient: Ardiana Cameron [id number] (Continued) Signed (signature on file) Terry Waller MD 03/13/24 1733 Normal [facility] Vital Signs Date Time Vital Sign Value Performing Clinician Estiven spears 11-13-2024 09:57-0500 Body mass index (BMI) [Ratio] 28.35 kg/m2 Adrianna Estevez DO Work Phone: [facility] 11-13-2024 09:57-0500 Body weight 80.29 kg Adrianna Herb DO Work Phone: [facility] 11-13-2024 09:57-0500 Diastolic blood pressure 70 mm[Hg] Adrianna Herb DO Work Phone: [facility] 11-13-2024 09:57-0500 Systolic blood pressure 120 mm[Hg] Adrianna Herb DO Work Phone: [facility] Encounters Encounter Date Encounter Type Care Provider Facility Start: 11-13-2024 End: 11-13-2024 Bamboo flowsheet Adrianna Herb DO Work Phone: [facility] Start: 11-13-2024 End: 11-19-2024 Bamboo flowsheet Adrianna Herb DO Work Phone: [facility] Start: 11-13-2024 End: 11-19-2024 [facility] Result Encounter Adrianna Herb DO Work Phone: [facility] External Department Unsolicited Start: 11-13-2024 End: 11-13-2024 ambulatory ADRIANNA HERB Not Available Start: 11-13-2024 End: 11-13-2024 Patient encounter procedure Adrianna Herb DO Work Phone: [facility] Healthcare Work Phone: Start: 11-13-2024 End: 11-13-2024 Periodic preventive med est patient 18-39 yrs Adrianna Herb DO Work Phone: [facility] Comment on above: PCOS (polycystic ova christofer syndrome) (Primary Dx); Well woman exam with routine gynecological exam Start: 04-22-2024 End: 04-22-2024 ambulatory TAYLOR GOMES Not Available Start: 03-18-2024 End: 03-18-2024 ambulatory ADRIANNA HERB Not Available Start: 03-11-2024 End: 03-11-2024 ambulatory MD Tila Bauman Work Phone: [facility] Work Phone: Start: 03-11-2024 End: 03-11-2024 Departed Referred MD Tila Bauman Work Phone: [facility] Start: 03-06-2024 End: 03-06-2024 ambulatory ADRIANNA HERB Not Available Start: 02-27-2024 End: 02-27-2024 ambulatory TAYLOR ELISEO Not Available Start: 02-21-2024 End: 02-21-2024 ambulatory ADRIANNA HERB Not Available Start: 02-07-2024 End: 02-07-2024 ambulatory ADRIANNA HERB Not Available Start: 01-24-2024 End: 01-24-2024 ambulatory ADRIANNA HERB Not Available Start: 01-10-2024 End: 01-10-2024 ambulatory TAYLOR GOMES Not Available Start: 12-27-2023 End: 12-27-2023 ambulatory ADRIANNA HERB Not Available Start: 11-29-2023 End: 11-29-2023 ambulatory TAYLOR GOMES Not Available Procedures Date Procedure Procedure Detail Performing Clinician Start: 11-13-2024 IGP,APTIMA HPV,AGE GDLN Adrianna Herb DO Work Phone: Start: 11-01-2023 Microscopic observat ion [Identifier] in Cervix by Cyto stain Adrianna Herb DO Work Phone: Plan of Treatment Date Care Activity Detail Author Start: 11-01-2028 Screening for malign ant neoplasm of cervix [facility] Start: 12-29-2024 End: 12-29-2024 Patient encounter procedure 12/29/2024 9:30 AM EDT Procedure Visit [facility] [address] [place] [id number] Adrianna Estevez, DO [address] [place] [address] [facility] Start: 12-09-2024 End: 12-09-2024 Professional / ancillary services management 12/09/2024 9:00 AM EST Ancillary Procedure [facility] [address] [place] [address] [facility] Start: 11-13-2024 End: 11-13-2025 DHEA DHEA Lab Routine PCOS (polycystic ovarian syndrome) Expected: 11/13/2024 (Approximate), Expires: 11/13/2025 [facility] Comment on above: Expected: 11/13/2024 (Approximate), Expires: 11/13/2025 Start: 11-13-2024 End: 11-13-2025 US Pelvis US Pelvis w/ TV Imaging Routine PCOS (polycystic ovarian syndrome) Expected: 11/13/2024, Expires: 11/13/2025 [facility] Comment on above: Expected: 11/13/2024 , Expires: 11/13/2025 Start: 06-08-2024 Influenza vaccination Influenza Vacc ine (#1) [facility] CBC W Auto Different ial panel - Blood CBC and differential Lab Routine PCOS (polycystic ovarian syndrome) Ordered: 11/13/2024 [facility] Comment on above: Ordered: 11/13/2024 Cytology Cervical or vaginal smear or scraping study Pap Smear Pathology and Cytology Routine Well woman exam with routine gynecological exam Ordered: 11/13/2024 [facility] Work Phone: Comment on above: Ordered: 11/13/2024 DHEA-sulfate DHEA-sulfate Lab Routine PCOS (polycystic ovarian syndrome) Ordered: 11/13/2024 [facility] Comment on above: Ordered: 11/13/2024 Follicle stimulating hormone Follicle stimulating hormone Lab Routine PCOS (polycystic ovarian syndrome) Ordered: 11/13/2024 [facility] Comment on above: Ordered: 11/13/2024 hCG, quantitative, hCG, quantitative, Lab Routine PCOS (polycystic ovarian syndrome) Ordered: 11/13/2024 [facility] Work Phone: Comment on above: Ordered: 11/13/2024 Hemoglobin A1c/Hemoglobin.total in Blood Hemoglobin A1c Lab Routine PCOS (polycystic ovarian syndrome) Ordered: 11/13/2024 [facility] Comment on above: Ordered: 11/13/2024 Human papilloma viru s DNA [Presence] in Unspecified specimen by Probe with amplification HPV DNA probe, amplified Microbiology Routine Well woman exam with routine gynecological exam Ordered: 11/13/2024 [facility] Comment on above: Ordered: 11/13/2024 Luteinizing hormone Luteinizing hormone Lab Routine PCOS (polycystic ovarian syndrome) Ordered: 11/13/2024 [facility] Comment on above: Ordered: 11/13/2024 Thyrotropin [Units/volume] in Serum or Plasma TSH Lab Routine PCOS (polycystic ovarian syndrome) Ordered: 11/13/2024 [facility] Comment on above: Ordered: 11/13/2024 Thyroxine (T4) free [Mass/volume] in Serum or Plasma T4, free Lab Routine PCOS (polycystic ovarian syndrome) Ordered: 11/13/2024 [facility] Comment on above: Ordered: 11/13/2024 Immunizations Immunization Date Immunization Notes Care Provider [facility] 02-24-2021 Moderna SARS-CoV-2 Vaccination Adrianna Herb DO Work Phone: [facility] 05-12-1998 diphtheria, tetanus toxoids and acellular pertussis vaccine, unspecified formulation Adrianna Herb DO Work Phone: [facility] 05-12-1998 measles, mumps and rubella virus vaccine Adrianna Herb DO Work Phone: [facility] 08-21-1994 diphtheria, tetanus toxoids and acellular pertussis vaccine, unspecified formulation Adrianna Herb DO Work Phone: [facility] 08-21-1994 trivalent poliovirus vaccine, live, oral Adrianna Herb DO Work Phone: [facility] 04-24-1994 haemophilus influenz ae type b vaccine, conjugate unspecified formulation Adrianna Herb DO Work Phone: [facility] 04-24-1994 measles, mumps and rubella virus vaccine Adrianna Herb DO Work Phone: [facility] 03-13-1994 hepatitis B vaccine, pediatric or pediatric/adolescent dosage Adrianna Herb DO Work Phone: [facility] 1993 hepatitis B vaccine, pediatric or pediatric/adolescent dosage Adrianna Herb DO Work Phone: [facility] 1993 diphtheria, tetanus toxoids and pertussis vaccine Adrianna Herb DO Work Phone: [facility] 1993 haemophilus influenz ae type b vaccine, conjugate unspecified formulation Adrianna Herb DO Work Phone: [facility] 1993 hepatitis B vaccine, pediatric or pediatric/adolescent dosage Adrianna Herb DO Work Phone: [facility] 1993 diphtheria, tetanus toxoids and pertussis vaccine Adrianna Herb DO Work Phone: [facility] 1993 haemophilus influenz ae type b vaccine, conjugate unspecified formulation Adrianna Herb DO Work Phone: [facility] 1993 trivalent poliovirus vaccine, live, oral Adrianna Herb DO Work Phone: [facility] 1993 diphtheria, tetanus toxoids and pertussis vaccine Adrianna Herb DO Work Phone: [facility] 1993 haemophilus influenz ae type b vaccine, conjugate unspecified formulation Adrianna Herb DO Work Phone: [facility] 1993 trivalent poliovirus vaccine, live, oral Adrianna Herb DO Work Phone: [facility] Payers Date Payer Category Payer Self-pay 2023 Medicaid (Managed Care) LINH CHAPPELL [id number] 2023 Medicaid [id number] 1995 Unknown [id number]. 1259 1993 Unknown [id number] [id number]. 9 1993 Unknown [id number] [id number]. 1258 1993 Unknown [id number] [id number]. 1258 1993 Unknown [id number] [id number]. 1258 1993 Unknown [id number] [id number]. 1258 1993 Unknown [id number] 2.16.840.1.512360.3.579.2. 1258 1993 Unknown [id number] [id number]. 1258 1993 Unknown [id number] 2.16.840.1.066264.3.579.2. 1258 1993 Unknown [id number] [id number]. 1258 1993 Unknown [id number]. 9 Social History Date Type Detail Facility Tobacco smoking stat [facility] Unknown if ever smoked [facility] Work Phone: Start: 1995 Sex Assigned At Female F [facility] Start: 06-15-2023 [facility] Start: 06-15-2023 Tobacco use and exposure [...] - these days [OSQ] To some extent [facility] (I/We) worried wheth er (my/our) food would run out before (I/we) got money to buy more. Never true [facility] Start: 06-15-2023 Alcohol Comment Once in a while [facility] Start: 1995 Sex assigned at Not on file [facility] NEGATED: Highlighted rowStart: NINF History of tobacco use Passive smoker [facility] History of Present illness Narrative 11-13-2024 [...] 05/03/2015 CYST REMOVAL Right ear as an infant REVIEW OF SYSTEMS Review of Systems: Review [...] nursing note reviewed. Exam conducted with a spinneret person present. 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 Relationship Specialty Start Date End Date Tila Bauman MD [address] [facility] [place] [address] PCP - [facility] 02/13/23 Tila Bauman MD [address] [facility] [place] [address] PCP - [facility] 01/07/24 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 Relationship Specialty Start Date End Date Tila Bauman MD [address] [facility] [place] [address] PCP - [facility] 02/13/23 Tila Bauman MD [address] [facility] [place] [address] PCP - [facility] 01/07/24 Goals (unrecognized section and content) Goals may be documented in a n alternate section INFORMATION SOURCE (unrecogn ized section and content) DATE CREATED AUTHOR 03/15/2024 [facility] DATE CREATED AUTHOR AUTHOR'S ORGANIZ ATION 11/15/2024 [facility] EPIC Reason for Visit (unrecogniz [...] BE BASED ON THE PRIMARY CLINICAL RECORDS. [facility]. provides no warranty or guarantee of the accuracy or completeness of information in this document.
--- OUTSIDE RECORDS SUMMARY | 2024-12-06 09:22 | XMS_ITS | CCD ---
Author Organization [facility] ion Partnership [facility] Care Team Providers Care Block Inspector Name Role Phone MD Tila Bauman Primary Care Provider [phone] Adrianna Estevez Attending Provider Tila Bauman Primary [...] sources) Cefixime; Translations: [cefixime] Drug Allergy 1 [facility] (6 sources) Cetirizine; Translations: [cetirizine] Drug Allergy 1 rash anithystamines [facility] (6 sources) diphenhydrAMINE ; Translations: [diphenhydramin e] Drug Allergy 1 Unknown, Rash [facility] (4 sources) Morphine Drug Allergy 3 Rash, [...] GDLNon AGE GDLN ACOG TESTING Note . [facility] Comment on above: TESTS RESULT FLAG UNITS REF RANGE LAB Clinician Provided Cytology Information Source.............Cervix;Endocervix No. of containers..01 ThinPrep Vial Age Algo ACOG Ida... 3065 01 FLAG LEGEND: L-Low Normal,H-High Normal,LL-Alert Low,HH-Alert High <-Panic Low,>-Panic High,A-Abnormal,AA-Critical Abnormal Performed at: 01 =G [address] [address] Taisha Montes De Oca MD, HPV APTIMA Negative Negative [facility] Comment on above: This nucleic acid amplification test det ects fourteen high- risk HPV types (16,18,31,33,35,39,45,51,52,56,58,59,66,68) without differentiation. Performed at: =G - [facility], [place] [id number] Specialty Department Supervisor: Taisha Montes De Oca MD, Phone: [phone] Performed at: WB - [facility], [place] [id number] Specialty Department Supervisor: Taisha Montes De Oca MD, Phone: [phone] IGP, APTIMA HPV, RFX 16[birth year]18,45 Note . [facility] Comment on above: TESTS RESULT FLAG UNITS REF RANGE LAB DIAGNOSIS: 02 NEGATIVE FOR INTRAEPITHELIAL LESION OR MALIGNANCY. Specimen adequacy: 02 Satisfactory for evaluation. Endocervical and/or squamous metaplastic cells (endocervical component) are present. Performed by: Cash Teixeira, Coatings Inspector (ASC) . 02 Note: Note 02 The [...] Low,>-Panic High,A-Abnormal,AA-Critical Abnormal Performed at: [address] [facility] [address] [place] [address] Taisha Montes De Oca MD, BRUSH-SPATULA CERVIX ENDOCERVIX [facility] NOMLatricia Nvearez 03-11-2024 L Specimen: [id number] Received: 03/11/24 Status: CHRISTIANE Req Num: [id number] Spec Type: Surgical Subm Dr: Adrianna Estevez Tissues: A Fallopian Tube - Sterilization (BILATERAL FT) Procedures: HE/2, Gross/Micro L2 Age/ Patient Sex Location Account Attending Physician RakeshAdriana M / LABELL [id number] Adrianna Estevez SPEC NUM: [id number] RECD: 03/11/24 STATUS: CHRISTIANE KHANNADeonte NUM: [id number] JAM: 03/11/[address]: Adrianna Estevez ENTERED: 03/11/24 [facility] DR: Ela,Lab SPEC TYPE: Surgical DEPT: LESLY [...] luminal center lined by unremarkable mello mucosa. Lpn Rn Hospice sections of each tube are submitted in A1 (tube #1) and A2 (tube #2). CPT Codes 29242 Specimen: [id number] Received: 03/11/24 Status: CHRISTIANE Khannadeonte Num: [id number] Spec Type: Surgical Subm Dr: Adrianna Estevez Tissues: A Fallopian Tube - Sterilization (BILATERAL FT) Procedures: HE/2, Gross/Micro L2 Patient: Adriana Cameron [id number] (Continued) Signed (signature on file) Terry Waller MD 03/13/24 3350 Normal [facility] Vital Signs Date Time Vital Sign Value Performing Clinician Estiven spears 11-13-2024 09:57-0500 Body mass index (BMI) [Ratio] 28.35 kg/m2 Adrianna Esteevz DO Work Phone: [facility] 11-13-2024 09:57-0500 Body weight 80.29 kg Adrianna Herb DO Work Phone: [facility] 11-13-2024 09:57-0500 Diastolic blood pressure 70 mm[Hg] Adrianna Herb DO Work Phone: [facility] 11-13-2024 09:57-0500 Systolic blood pressure 120 mm[Hg] Adrianna Herb DO Work Phone: [facility] Encounters Encounter Date Encounter Type Care Provider Facility Start: 11-13-2024 End: 11-13-2024 Bamboo flowsheet Adrianna Herb DO Work Phone: [facility] Start: 11-13-2024 End: 11-19-2024 Bamboo flowsheet Adrianna Herb DO Work Phone: [facility] Start: 11-13-2024 End: 11-19-2024 Clinisync Result Encounter Adrianna Herb DO Work Phone: [facility] External Department Unsolicited Start: 11-13-2024 End: 11-13-2024 ambulatory ADRIANNA HERB Not Available Start: 11-13-2024 End: 11-13-2024 Patient encounter procedure Adrianna Herb DO Work Phone: [facility] Healthcare Work Phone: Start: 11-13-2024 End: 11-13-2024 Periodic preventive med est patient 18-39 yrs Adrianna Herb DO Work Phone: [facility] Comment on above: PCOS (polycystic ova christofer syndrome) (Primary Dx); Well woman exam with routine gynecological exam Start: 04-22-2024 End: 04-22-2024 ambulatory TAYLOR GOMES Not Available Start: 03-18-2024 End: 03-18-2024 ambulatory ADRIANNA HERB Not Available Start: 03-11-2024 End: 03-11-2024 ambulatory MD Tila Bauman Work Phone: [facility] Work Phone: Start: 03-11-2024 End: 03-11-2024 Departed Referred MD Tila Bauman Work Phone: [facility] Start: [...] EDT Procedure Visit [facility] [address] [place] [id number] Adrianna Estevez, DO [address] [place] [phone] [facility] Start: 12-09-2024 End: 12-09-2024 Professional / ancillary services management 12/09/2024 9:00 AM EST Ancillary Procedure [facility] [address] [place] [id number] [facility] Start: 11-13-2024 End: 11-13-2025 DHEA DHEA Lab Routine PCOS (polycystic ovarian syndrome) Expected: 11/13/2024 (Approximate), Expires: 11/13/2025 [facility] Comment on above: Expected: 11/13/2024 (Approximate), Expires: 11/13/2025 Start: 11-13-2024 End: 11-13-2025 US Pelvis US Pelvis w/ TV Imaging Routine PCOS (polycystic ovarian syndrome) Expected: 11/13/2024, Expires: 11/13/2025 [facility] Comment on above: Expected: 11/13/2024 , Expires: 11/13/2025 Start: 06-08-2024 Influenza vaccination Influenza Vacc ine (#1) [facility] CBC W Auto Different ial panel - Blood CBC and differential Lab Routine PCOS (polycystic ovarian syndrome) Ordered: 11/13/2024 [facility] Comment on above: Ordered: 11/13/2024 Cytology Cervical or vaginal smear or scraping study Pap Smear Pathology and Cytology Routine Well woman exam with routine gynecological exam Ordered: 11/13/2024 [facility] Work Phone: Comment on above: Ordered: 11/13/2024 DHEA-sulfate DHEA-sulfate Lab Routine PCOS (polycystic ovarian syndrome) Ordered: 11/13/2024 [facility] Comment on above: Ordered: 11/13/2024 Follicle stimulating hormone Follicle stimulating hormone Lab Routine PCOS (polycystic ovarian syndrome) Ordered: 11/13/2024 [facility] Comment on above: Ordered: 11/13/2024 hCG, quantitative, hCG, quantitative, Lab Routine PCOS (polycystic ovarian syndrome) Ordered: 11/13/2024 [facility] Work Phone: Comment on above: Ordered: 11/13/2024 Hemoglobin A1c/Hemoglobin.total in Blood Hemoglobin A1c Lab Routine PCOS (polycystic ovarian syndrome) Ordered: 11/13/2024 [facility] Comment on above: Ordered: 11/13/2024 Human papilloma viru s DNA [Presence] in Unspecified specimen by Probe with amplification HPV DNA probe, amplified Microbiology Routine Well woman exam with routine gynecological exam Ordered: 11/13/2024 [facility] Comment on above: Ordered: 11/13/2024 Luteinizing hormone Luteinizing hormone Lab Routine PCOS (polycystic ovarian syndrome) Ordered: 11/13/2024 [facility] Comment on above: Ordered: 11/13/2024 Thyrotropin [Units/volume] in Serum or Plasma TSH Lab Routine PCOS (polycystic ovarian syndrome) Ordered: 11/13/2024 [facility] Comment on above: Ordered: 11/13/2024 Thyroxine (T4) free [Mass/volume] in Serum or Plasma T4, free Lab Routine PCOS (polycystic ovarian syndrome) Ordered: 11/13/2024 [facility] Comment on above: Ordered: 11/13/2024 Immunizations Immunization Date Immunization Notes Care Provider [facility] 02-24-2021 Moderna SARS-CoV-2 Vaccination Adrianna Herb DO Work Phone: [facility] 05-12-1998 diphtheria, tetanus toxoids and acellular pertussis vaccine, unspecified formulation Adrianna Herb DO Work Phone: [facility] 05-12-1998 measles, mumps and rubella virus vaccine Adrianna Herb DO Work Phone: [facility] 08-21-1994 diphtheria, tetanus toxoids and acellular pertussis vaccine, unspecified formulation Adrianna Herb DO Work Phone: [facility] 08-21-1994 trivalent poliovirus vaccine, live, oral Adrianna Herb DO Work Phone: [facility] 04-24-1994 haemophilus influenz ae type b vaccine, conjugate unspecified formulation Adrianna Herb DO Work Phone: [facility] 04-24-1994 measles, mumps and rubella virus vaccine Adrianna Herb DO Work Phone: [facility] 03-13-1994 hepatitis B vaccine, pediatric or pediatric/adolescent dosage Adrianna Herb DO Work Phone: [facility] 1993 hepatitis B vaccine, pediatric or pediatric/adolescent dosage Adrianna Herb DO Work Phone: [facility] 1993 diphtheria, tetanus toxoids and pertussis vaccine Adrianna Herb DO Work Phone: [facility] 1993 haemophilus influenz ae type b vaccine, conjugate unspecified formulation Adrianna Herb DO Work Phone: [facility] 1993 hepatitis B vaccine, pediatric or pediatric/adolescent dosage Adrianna Herb DO Work Phone: [facility] 1993 diphtheria, tetanus toxoids and pertussis vaccine Adrianna Herb DO Work Phone: [facility] 1993 haemophilus influenz ae type b vaccine, conjugate unspecified formulation Adrianna Herb DO Work Phone: [facility] 1993 trivalent poliovirus vaccine, live, oral Adrianna Herb DO Work Phone: [facility] 1993 diphtheria, tetanus toxoids and pertussis vaccine Adrianna Herb DO Work Phone: [facility] 1993 haemophilus influenz ae type b vaccine, conjugate unspecified formulation Adrianna Herb DO Work Phone: [facility] 1993 trivalent poliovirus vaccine, live, oral Adrianna Herb DO Work Phone: [facility] Payers Date Payer Category Payer Self-pay 2023 Medicaid (Managed Care) LINH CHAPPELL [id number] 2023 Medicaid [id number] 1993 Unknown [id number] [id number]. 1259 1993 Unknown [id number] [id number]. 9 1993 Unknown [id number] 2.16.840.1.852802.3.579.2. 1258 1993 Unknown [id number] 2.16.840.1.545510.3.579.2. 1258 1993 Unknown [id number] 2.16.840.1.450206.3.579.2. 1258 1993 Unknown [id number] 2.16.840.1.866390.3.579.2. 1258 1993 Unknown [id number] 2.16.840.1.979347.3.579.2. 1258 1993 Unknown [id number] 2.16.840.1.679166.3.579.2. 1258 1993 Unknown [id number] 2.16.840.1.840134.3.579.2. 1258 1993 Unknown [id number] 2.16.840.1.688454.3.579.2. 1258 1993 Unknown [id number] 2.16.840.1.333284.3.579.2. 9 Social History Date Type Detail Facility Tobacco smoking stat [facility] Unknown if ever smoked [facility] Work Phone: Start: 1995 Sex Assigned At Female F [facility] Start: 06-15-2023 [facility] Start: 06-15-2023 Tobacco use and exposure [...] nursing note reviewed. Exam conducted with a lead retail sales associate present. Vitals: Estimated body mass index is [...] Note Facility Evaluation note [facility]: Evaluation note Note [...] Kenzie dewitt 2023 End: March 11, 2024 Block Inspector Relationship Specialty Start Date End Date Tila Bauman MD [address] [place] [address] PCP - General Family Medicine 02/13/23 Tila Bauman MD [address] [place] [address] PCP - [facility] 01/07/24 Block Inspector Relationship Specialty Start Date End Date Tila Bauman MD [address] [facility] [place] [address] PCP - [facility] 02/13/23 Tila Bauman MD [address] [facility] [place] [address] PCP - [facility] 01/07/24 Block Inspector Relationship Specialty Start Date End Date Tila Bauman MD [address] [facility] [place] [address] PCP - [facility] 02/13/23 Tila Bauman MD [address] [facility] [place] [address] PCP - [facility] 01/07/24 Goals (unrecognized section and content) Goals may be documented in a n alternate section INFORMATION SOURCE (unrecogn ized section and content) DATE CREATED AUTHOR 03/15/2024 [facility] y[facility] DATE CREATED AUTHOR AUTHOR'S ORGANIZ ATION 11/15/2024 [facility] EPIC Reason for Visit (unrecogniz [...] BASED ON THE PRIMARY CLINICAL RECORDS. [facility]. provides no warranty or guarantee of the accuracy or completeness of information in this document.
[2024-12-06 09:58] LABS: Basophils Percent Auto 0.6 % (0.2-2.0); Eosinophils Absolute Auto 0.1 10^3/uL (0.0-0.7); Eosinophils Percent Auto 1.6 % (0.9-7.0); Hematocrit 39.3 % (36.0-48.0); Hemoglobin 12.8 g/dL (12.0-16.0); Immature Granulocytes Abs Auto 0.01 10^3/uL (0.00-0.03); Immature Granulocytes Pct Auto 0.2 % (0.0-0.5); Lymphocytes Absolute Auto 1.6 10^3/uL (1.2-3.8); Lymphocytes Percent Auto 30.9 % (20.5-60.0); Mean Corpuscular HGB Conc 32.6 g/dL (29.9-35.2); Mean Corpuscular Hemoglobin 29.2 pg (26.7-34.0); Mean Corpuscular Volume 89.7 fL (81.0-99.0); Mean Platelet Volume 11.5 fL (9.5-13.5); Monocytes Absolute Auto 0.4 10^3/uL (0.3-0.8); Monocytes Percent Auto 8.3 % (1.7-12.0); Neutrophils Percent Auto 58.4 % (43.0-75.0); Platelet Count 215 10^3/uL (150-450); Red Blood Count 4.38 10^6/uL (4.20-5.40); Red Cell Distribution Width 13.2 % (11.0-15.0); White Blood Count 5.2 10^3/uL (4.0-11.0)
[2024-12-06 10:07] LABS: Estimated Average Glucose 91 mg/dL; Glycohemoglobin A1C 4.8 % (4.5-6.2)
[2024-12-06 10:32] LABS: Thyroid Stimulating Hormone 1.948 uIU/mL (0.358-3.740)
[2024-12-06 10:37] LABS: HCG Quantitative <1 mIU/mL
[2024-12-07 08:10] LABS: FSH 5.5 mIU/mL (.); Luteinizing Hormone(LH) 10.4 mIU/mL (.)
== END 2024-12-06 09:20 | disposition home or self-care (01) ==
PROVIDERS: Visit Provider Physician Assistant
DX: E28.2 Polycystic ovarian syndrome (principal)
CPT/HCPCS: 36415; 82627; 83001; 83002; 83036; 84439; 84443; 84702; 85025